=== PATIENT | female | born 1945 | race Caucasian/White ===

== ENCOUNTER 2016-09-12 16:03 | Outpatient (CLI) | payer MEDICARE, OTHER | END 2016-09-12 16:04 | disposition home or self-care (01) | LOC: LAB.F 16:03 | PROVIDERS: ATTEND Internal Medicine | DX: K74.60 Unspecified cirrhosis of liver (principal) | CPT/HCPCS: 36415; 82105 ==

== ENCOUNTER 2016-10-16 13:53 | Outpatient (CLI) | payer MEDICARE, OTHER ==
[2016-10-16 18:41] LABS: HCT - HEMATOCRIT 38.5 % (37.0-47.0); HGB - HEMOGLOBIN 12.9 g/dL (12.0-16.0); MEAN CORPUSCULAR HEMOGLOBIN 30.8 pg (27.0-31.0); MEAN CORPUSCULAR HGB CONC 33.4 g/dL (32.0-36.0); MEAN CORPUSCULAR VOLUME 92.2 fL (81.0-99.0); MEAN PLATELET VOLUME 9.9 fL (7.9-10.8); RED BLOOD COUNT 4.18 10^6/uL (4.20-5.40); RED CELL DISTRIBUTION WIDTH 12.4 % (12.0-15.0)
[2016-10-16 18:46] LABS: INR 1.1 (0.8-1.2); PT - PROTHROMBIN TIME 12.2 secs (9.9-12.6)
[2016-10-16 18:56] LABS: ALBUMIN/GLOBULIN RATIO 1.2 (1.0-2.2); BILIRUBIN,TOTAL 0.7 mg/dL (0.2-1.0); CREATININE 0.6 mg/dL (0.4-1.0); POTASSIUM 3.9 mmol/L (3.5-5.0); TOTAL PROTEIN 7.5 g/dL (6.7-8.2)
[2016-10-16 19:00] LABS: WHITE BLOOD COUNT 1.9 x10^3/uL (4.8-10.8)
== END 2016-10-16 13:54 | disposition home or self-care (01) ==
LOC: LAB.F 13:53
PROVIDERS: ATTEND Internal Medicine
DX: K74.60 Unspecified cirrhosis of liver (principal)
CPT/HCPCS: 36415; 80053; 85610

== ENCOUNTER 2017-03-26 12:45 | Outpatient (CLI) | payer MEDICARE, OTHER ==
--- NOTE | 2017-03-31 14:01 | Mammography Report ---
DATE OF SERVICE: 03/26/2017 DIGITAL SCREENING MAMMOGRAM: 03/26/2017 CLINICAL INDICATION: A 71-year-old with family history of breast cancer for screening. COMPARISON: 12/2015, 06/2014, 02/2013, 06/2011, 12/2009. TECHNIQUE: Routine CC and MLO projections were obtained of the breasts. FINDINGS: Scattered fibroglandular tissue is present within the breasts. There are no dominant mass es, suspicious microcalcifications, or secondary signs of malignancy. In comparison to the previous stud ies, there are no significant changes. ASSESSMENT: NO MAMMOGRAPHIC EVIDENCE OF MALIGNANCY. NO SIGNIFICANT INTERVAL CHANGES. RECOMMENDATION: Screening mammography is recommended annually. BIRADS category 1 - Negative. STANDARD QUALIFYING STATEMENTS 1. This examination was reviewed with the aid of Computed-Aided Detection (CAD). 2. A negative or benign imaging report should not delay biopsy if clinically suspicious findings are present. Consider surgical consultation if warranted. More than 5% of cancers are not identified by imaging. 3. Dense breasts may obscure an underlying neoplasm. TD: 03/27/2017 22:35
== END 2017-03-26 12:46 | disposition home or self-care (01) ==
LOC: DI 12:45
PROVIDERS: ATTEND Physician Assistant
DX: Z12.31 Encounter for screening mammogram for malignant neoplasm of breast (principal); Z80.3 Family history of malignant neoplasm of breast
CPT/HCPCS: 77067

== ENCOUNTER 2017-04-29 13:02 | Outpatient (CLI) | payer MEDICARE, OTHER ==
[2017-04-29 18:42] LABS: ALBUMIN/GLOBULIN RATIO 1.1 (1.0-2.2); BILIRUBIN,TOTAL 0.4 mg/dL (0.2-1.0); CALCIUM 8.9 mg/dL (8.5-10.3); CREATININE 0.5 mg/dL (0.4-1.0); TOTAL PROTEIN 7.5 g/dL (6.7-8.2)
[2017-05-01 21:16] LABS: COPPER 85 mcg/dL (70-175)
[2017-05-01 23:21] LABS: ALPHA 1 GLOBULIN 0.2 g/dL (0.2-0.3); ALPHA 2 GLOBULIN 0.7 g/dL (0.5-0.9); BETA 1 GLOBULIN 0.4 g/dL (0.4-0.6); BETA 2 GLOBULIN 0.4 g/dL (0.2-0.5); GAMMA GLOBULIN 1.3 g/dL (0.8-1.7)
[2017-05-03 17:51] LABS: ALPHA-TOCOPHEROL 15.7 mg/L (5.7-19.9); BETA-GAMMA-TOCOPHEROL 1.1 mg/L (< 4.3)
[2017-05-04 16:31] LABS: ENDOMYSIAL ANTIBODY SCR IGA NEGATIVE (NEGATIVE); GLIADIN (DEAMIDATED) AB IGA 18 U (<20); GLIADIN (DEAMIDATED) AB IGG 6 U (<20); IMMUNOGLOBULIN A 606 mg/dL (81-463); TISSUE TRANSGLUTAMINASE IGA <1 U/mL; TISSUE TRANSGLUTAMINASE IGG 2 U/mL
== END 2017-04-29 13:03 | disposition home or self-care (01) ==
LOC: LAB.F 13:02
PROVIDERS: ATTEND Psychiatry & Neurology Neurology
DX: G62.9 Polyneuropathy, unspecified (principal); E03.9 Hypothyroidism, unspecified; R77.8 Other specified abnormalities of plasma proteins; Z13.9 Encounter for screening, unspecified
CPT/HCPCS: 36415; 80053; 81599; 82525; 82784; 83516; 84155; 84165; 84443; 84446; 86256; 86334

== ENCOUNTER 2017-05-01 15:20 | Outpatient (CLI) | payer MEDICARE, OTHER ==
[2017-05-01 17:50] LABS: BASOPHILS % (AUTO) 0.3 %; EOSINOPHILS % (AUTO) 1.3 %; HGB - HEMOGLOBIN 12.3 g/dL (12.0-16.0); LYMPHOCYTES % (AUTO) 30.5 %; MEAN CORPUSCULAR HEMOGLOBIN 31.1 pg (27.0-31.0); MEAN CORPUSCULAR HGB CONC 33.8 g/dL (32.0-36.0); MEAN CORPUSCULAR VOLUME 91.8 fL (81.0-99.0); MEAN PLATELET VOLUME 10.4 fL (7.9-10.8); MONOCYTES % (AUTO) 8.4 %; NEUTROPHILS % (AUTO) 59.5 %; PLT - PLATELET COUNT 90 10^3/uL (130-450); RED BLOOD COUNT 3.95 10^6/uL (4.20-5.40); WHITE BLOOD COUNT 2.2 x10^3/uL (4.8-10.8)
[2017-05-01 17:52] LABS: ABNORMAL LYMPHS % (MANUAL) 0 %
[2017-05-01 18:13] LABS: BAND NEUTROPHILS % (MANUAL) 3 %; DIFFERENTIAL COMMENT MANUAL DIFFERENTIAL; LYMPHOCYTES # (MANUAL) 0.5 10^3/uL (1.5-3.5); LYMPHOCYTES % (MANUAL) 24 %; MONOCYTES # (MANUAL) 0.2 10^3/uL (0.0-1.0); NEUTROPHILS # (MANUAL) 1.4 10^3/uL (1.5-6.6); NEUTROPHILS % (MANUAL) 61 %; PLATELET ESTIMATE, MANUAL DECREASED (<130,000) (NORMAL); PLATELET MORPHOLOGY NORMAL APPEARANCE (NORMAL); RBC MORPHOLOGY (MULTIPLE) NORMAL APPEARANCE (NORMAL)
== END 2017-05-01 15:21 | disposition home or self-care (01) ==
LOC: LAB.F 15:20
PROVIDERS: ATTEND Physician Assistant
DX: E03.9 Hypothyroidism, unspecified (principal); Z13.9 Encounter for screening, unspecified
CPT/HCPCS: 85025

== ENCOUNTER 2018-01-11 13:51 | Outpatient (CLI) | payer MEDICARE, OTHER ==
--- NOTE | 2018-01-11 16:45 | XRAY Report ---
Reason: RT LEG PAIN Procedure Date: 01/11/2018 Accession Number: [id number] / [id number] Procedure: XR - Knee 3 View RT CPT Code: FULL RESULT: EXAM: RIGHT KNEE RADIOGRAPHY EXAM DATE: 01/11/2018 02:02 PM HISTORY: Injury and pain COMPARISON: None TECHNIQUE: AP, lateral and Merchant, 3 views including weightbearing FINDINGS: There is some mild cortical and trabecular irregularity at the tibial metaphysis. This could be a nondisplaced fracture. Follow-up with CT is recommended to better assess. Osteopenia is noted. There is lateral tibiofemoral compartment narrowing with subchondral sclerosis and small osteophyte formation consistent with Kellgren Luke grade 3 osteoarthritis. Positive for moderate joint effusion. Some cortical irregularity noted at the proximal fibula could be a fracture, old or new. IMPRESSION: Osteopenia with mild cortical and trabecular irregularity of the fibular head and tibial metaphysis. Consider CT or MRI to better assess for fracture. Findings are superimposed on Kellgren Luke grade 3 osteoarthritis mostly affecting the lateral compartment. RADIA
--- NOTE | 2018-01-11 16:50 | XRAY Report ---
Reason: RT LEG PAIN Procedure Date: 01/11/2018 Accession Number: [id number] / [id number] Procedure: XR - Tib/Fib RT CPT Code: FULL RESULT: EXAM: RIGHT TIBIA AND FIBULA RADIOGRAPHY EXAM DATE: 01/11/2018 02:03 PM HISTORY: Injury and pain COMPARISON: NONE TECHNIQUE: 2 views FINDINGS: Proximal fibular and tibial trabecular and cortical irregularity noted. See knee dictation of the same day for additional information. There is osteopenia. Mid and distal portions of the tibia and fibula show no significant abnormality. Ankle articulation is grossly intact. IMPRESSION: Mild cortical and trabecular irregularity of the proximal tibia and fibula. See knee dictation for additional information. Otherwise essentially unremarkable. RADIA
--- NOTE | 2018-01-11 16:52 | XRAY Report ---
Reason: RT LEG PAIN Procedure Date: 01/11/2018 Accession Number: [id number] / [id number] Procedure: XR - Ankle 3 View RT CPT Code: FULL RESULT: EXAM: RIGHT ANKLE RADIOGRAPHY EXAM DATE: 01/11/2018 02:02 PM HISTORY: Injury and pain COMPARISON: NONE TECHNIQUE: AP, lateral and oblique, 3 views FINDINGS: There is osteopenia. No apparent fracture or abnormality. Intact ankle mortise and normal overall alignment. No joint effusion. Mild lateral soft tissue swelling noted. There is also a super navicular accessory ossicle and an os peroneum. IMPRESSION: Osteopenia. No acute bony abnormality. RADIA
--- NOTE | 2018-01-11 17:03 | XRAY Report ---
Reason: RT LEG PAIN Procedure Date: 01/11/2018 Accession Number: [id number] / [id number] Procedure: XR - Foot 3 View RT CPT Code: FULL RESULT: EXAM: RIGHT FOOT RADIOGRAPHY EXAM DATE: 01/11/2018 02:02 PM HISTORY: Injury and pain COMPARISON: None. TECHNIQUE: AP, lateral and oblique, 3 views FINDINGS: There is osteopenia. No evidence of acute fracture deformity. Overall normal articular alignment. Mild forefoot soft tissue swelling might be present. There is an os peroneum as well as a supraclavicular accessory ossicle. IMPRESSION: Osteopenia. Mild forefoot soft tissue swelling. No apparent fracture or dislocation. RADIA
== END 2018-01-11 13:52 | disposition home or self-care (01) ==
LOC: DI 13:51
PROVIDERS: ATTEND Nurse Practitioner Family
DX: M85.861 Other specified disorders of bone density and structure, right lower leg (principal); M17.11 Unilateral primary osteoarthritis, right knee; R93.7 Abnormal findings on diagnostic imaging of other parts of musculoskeletal system; M85.871 Other specified disorders of bone density and structure, right ankle and foot

== ENCOUNTER 2018-02-05 15:28 | Outpatient (CLI) | payer MEDICARE, OTHER ==
--- NOTE | 2018-02-06 01:59 | XRAY Report ---
Reason: PELVIC/PERINEAL PAIN, TRAUMA WITH FALL Procedure Date: 02/05/2018 Accession Number: [id number] / [id number] Procedure: XR - Hip w/Pelvis 1V RT CPT Code: FULL RESULT: EXAM: RIGHT HIP AND PELVIS RADIOGRAPHY EXAM DATE: 02/05/2018 04:20 PM. HISTORY: PELVIC/PERINEAL PAIN, TRAUMA WITH FALL. COMPARISONS: KNEE 3 VIEW RT 01/11/2018 2:02 PM XR HIP UNILAT MIN 2 VIEW 12/08/2008 9:17 AM. TECHNIQUE: 1 view of the pelvis and 1 view of the hip. FINDINGS: Bones: Negative for a fracture of the right hip. There are new findings of left hip hemiarthroplasty. Joints: Sacroiliac joints and pubic symphysis appear in satisfactory alignment. Soft Tissues: Unremarkable. IMPRESSION: Negative for fracture and subluxation of the right hip. RADIA
== END 2018-02-05 15:29 | disposition home or self-care (01) ==
LOC: DI 15:28
PROVIDERS: ATTEND Physician Assistant
DX: M25.551 Pain in right hip (principal); Z96.642 Presence of left artificial hip joint

== ENCOUNTER 2020-07-27 12:47 | Outpatient (CLI) | payer MEDICARE, OTHER | END 2020-07-27 12:48 | disposition home or self-care (01) | LOC: COV 12:47 | PROVIDERS: ATTEND Internal Medicine | DX: Z01.812 Encounter for preprocedural laboratory examination (principal); I85.00 Esophageal varices without bleeding; Z20.822 Contact with and (suspected) exposure to COVID-19 ==

== ENCOUNTER 2021-07-09 16:19 | Outpatient (CLI) | payer MEDICARE, OTHER ==
[2021-07-09 19:51] LABS: BASOPHILS % (AUTO) 0.9 %; EOSINOPHILS % (AUTO) 2.3 %; HCT - HEMATOCRIT 35.2 % (37.0-47.0); HGB - HEMOGLOBIN 11.8 g/dL (12.0-16.0); LYMPHOCYTES % (AUTO) 31.6 %; MEAN CORPUSCULAR HEMOGLOBIN 31.1 pg (27.0-31.0); MEAN CORPUSCULAR HGB CONC 33.5 g/dL (32.0-36.0); MEAN CORPUSCULAR VOLUME 92.9 fL (81.0-99.0); MEAN PLATELET VOLUME 12.5 fL (7.9-10.8); MONOCYTES % (AUTO) 7.4 %; NEUTROPHILS % (AUTO) 57.8 %; PLT - PLATELET COUNT 119 10^3/uL (130-450); RED BLOOD COUNT 3.79 10^6/uL (4.20-5.40); RED CELL DISTRIBUTION WIDTH 11.9 % (12.0-15.0); WHITE BLOOD COUNT 2.2 x10^3/uL (4.8-10.8)
[2021-07-09 19:54] LABS: ABNORMAL LYMPHS % (MANUAL) 0 %
[2021-07-09 20:03] LABS: ALBUMIN 3.8 g/dL (3.2-5.5); ALBUMIN/GLOBULIN RATIO 1.3 (1.0-2.2); BILIRUBIN,TOTAL 0.6 mg/dL (0.2-1.0); CALCIUM 8.9 mg/dL (8.5-10.3); CREATININE 0.5 mg/dL (0.4-1.0); POTASSIUM 3.7 mmol/L (3.5-5.0); TOTAL PROTEIN 6.8 g/dL (6.7-8.2)
[2021-07-09 20:22] LABS: THYROID STIMULATING HORMONE 4.73 uIU/mL (0.34-5.60)
[2021-07-09 20:26] LABS: BAND NEUTROPHILS % (MANUAL) 1 %; BASOPHILS % (MANUAL) 2 %; DIFFERENTIAL COMMENT MANUAL DIFFERENTIAL; EOSINOPHILS # (MANUAL) 0.1 10^3/uL (0-0.7); LYMPHOCYTES # (MANUAL) 0.6 10^3/uL (1.5-3.5); LYMPHOCYTES % (MANUAL) 23 %; MONOCYTES # (MANUAL) 0.2 10^3/uL (0.0-1.0); NEUTROPHILS # (MANUAL) 1.4 10^3/uL (1.5-6.6); PLATELET ESTIMATE, MANUAL DECREASED (<130,000) (NORMAL); PLATELET MORPHOLOGY NORMAL APPEARANCE (NORMAL); RBC MORPHOLOGY (MULTIPLE) NORMAL APPEARANCE (NORMAL); REACTIVE LYMPHS % (MANUAL) 2 %; WBC MORPHOLOGY (MULTIPLE) NORMAL APPEARANCE (NORMAL)
== END 2021-07-09 16:20 | disposition home or self-care (01) ==
LOC: LAB.S 16:19
PROVIDERS: ATTEND Nurse Practitioner Family
DX: M81.0 Age-related osteoporosis without current pathological fracture (principal); E03.9 Hypothyroidism, unspecified
CPT/HCPCS: 36415; 80053; 82306; 84443; 85025

== ENCOUNTER 2021-07-25 08:00 | Outpatient (CLI) | payer MEDICARE, OTHER ==
[2021-07-25 21:09] LABS: THYROID STIMULATING HORMONE 2.16 uIU/mL (0.34-5.60)
== END 2021-07-25 08:01 | disposition home or self-care (01) ==
LOC: LAB.S 08:00
PROVIDERS: ATTEND Nurse Practitioner Family
DX: E03.9 Hypothyroidism, unspecified (principal)
CPT/HCPCS: 36415; 84443

== ENCOUNTER 2022-08-06 21:10 | Outpatient (CLI) | payer MEDICARE, OTHER | END 2022-08-06 23:59 | disposition critical access hospital (66) | LOC: EMS 21:10 | DX: R42 Dizziness and giddiness (principal); R11.0 Nausea; R00.1 Bradycardia, unspecified; R03.0 Elevated blood-pressure reading, without diagnosis of hypertension | CPT/HCPCS: A0425; A0427 ==

== ENCOUNTER 2022-08-06 22:30 | Emergency (ER) | payer MEDICARE, OTHER ==
[2022-08-06] MEDS ORDERED: SODIUM CHLORIDE 0.9% 1,000 ML IV STA (23:03)
[2022-08-06] MEDS ORDERED: METOCLOPRAMIDE 10 MG/2 ML VIAL IVP STA (23:03)
--- NOTE | 2022-08-06 23:08 | ED Physician Documentation ---
History of Present Illness - Stated complaint Stated Complaint: DIZZY/NAUSEA - Chief complaint Chief Complaint: Abd Pain - Additonal information Additional information: Patient 76-year-old female presenting to the emergency department with chief complaint nausea vomiting and lightheadedness. Accompanied by who is present at bedside. Reports this evening at 1730 hrs. became acutely nauseous and lightheaded. Denies any vertiginous sensation or syncope associated with the event. Reports that she was sitting outside in the hot sun earlier this afternoon. Was recently seen and treated for trigger finger of the right hand. Reports had not taken any of her Roxicodone prior to the onset of her symptoms but did take a 5 mg Roxicodone at approximately 9 this evening which worsened her symptoms. 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 - Past Surgical History Past Surgical History: Yes Ortho: Other - Present Medications Home Medications: Ambulatory Orders Medication Instructions Recorded Confirmed Cholecalciferol (Vitamin D3) 5,000 unit PO ONCE 09/21/13 04/21/18 [Vitamin D] Diazepam [Valium] 1 - 2 mg PO TID 09/21/13 04/21/18 Levothyroxine [Synthroid] 37.5 mcg PO QDAC 09/21/13 04/21/18 Liothyronine Sodium 2.5 mcg PO DAILY 09/21/13 04/21/18 [place]-3 Fatty Acids [Fish Oil] 500 mg PO DAILY 09/13/14 04/21/18 Acetaminophen with Codeine 1 each PO DAILY PRN 12/10/16 04/21/18 [Acetaminophen-Cod #3 Tablet] Aspirin [Aspirin EC] 81 mg PO DAILY 12/10/16 04/21/18 Psyllium Husk [Fiber] 5 gm PO DAILY 12/10/16 04/21/18 Saccharomyces Boulardii [Florastor] 250 mg PO BID 12/10/16 04/21/18 Cyanocobalamin (Vitamin B-12) 1 cap PO DAILY 12/30/17 04/21/18 [Vitamin B-12] Ibuprofen 200 mg PO Q6HR PRN 12/30/17 04/21/18 Milk Thistle/Nac/Dandel/Turmer 2 tab PO DAILY 12/30/17 04/21/18 [Liver Complex Tablet] Ondansetron Odt [Zofran] 4 mg TL Q6H PRN #10 tablet 08/07/22 - Allergies Allergies/Adverse Reactions: Allergies Allergy/AdvReac Type Severity Reaction Status Date / Time Sulfa (Sulfonamide Allergy Mild Rash Verified 08/06/22 23:00 Antibiotics) - Social History Does the pt smoke?: No Smoking Status: Never smoker Does the pt drink ETOH?: No Does the pt have substance abuse?: No - Immunizations Immunizations are current?: Yes - POLST Patient has POLST: No Results - Vitals Vitals: Vital Signs - 24 hr 08/06/22 08/07/22 08/07/22 22:34 00:39 02:00 Temperature 36.4 C L Heart Rate 54 L 65 64 Respiratory 16 18 16 Rate Blood Pressure 192/71 H 160/71 H 158/73 H O2 Saturation 100 100 99 Oxygen O2 Source Room air - Labs Labs: Laboratory Tests 08/06/22 08/06/22 08/06/22 23:09 23:09 23:09 WBC 3.1 L RBC 3.76 L Hgb 11.8 L Hct 34.7 L MCV 92.3 MCH 31.4 H MCHC 34.0 RDW 11.6 L Plt Count 93 L MPV 11.4 H Neut # (Auto) 2.5 Lymph # (Auto) 0.4 L [place] # (Auto) 0.2 Eos # (Auto) 0.0 Baso # (Auto) 0.0 Absolute Nucleated RBC 0.00 Nucleated RBC % 0.0 Sodium 134 L Potassium 3.5 Chloride 100 L Carbon Dioxide 25 Anion Gap 9.0 BUN 17 Creatinine 0.6 Estimated GFR (MDRD) 97 Glucose 139 H Lactic Acid 0.8 Calcium 8.5 Total Bilirubin 0.8 AST 22 ALT 14 Alkaline Phosphatase 47 Total Protein 7.1 Albumin 3.9 Globulin 3.2 Albumin/Globulin Ratio 1.2 Lipase 35 Urine Color Urine Clarity Urine pH Ur Specific [place] Urine Protein Urine Glucose (UA) Urine Ketones Urine Occult Blood Urine Nitrite Urine Bilirubin Urine Urobilinogen Ur Leukocyte Esterase Urine RBC Urine WBC Ur Squamous Epith Cells Amorphous Sediment Urine Bacteria Urine Mucus Ur Microscopic Review Urine Culture Comments 08/06/22 23:18 WBC RBC Hgb Hct MCV MCH MCHC RDW Plt Count MPV Neut # (Auto) Lymph # (Auto) [place] # (Auto) Eos # (Auto) Baso # (Auto) Absolute Nucleated RBC Nucleated RBC % Sodium Potassium Chloride Carbon Dioxide Anion Gap BUN Creatinine Estimated GFR (MDRD) Glucose Lactic Acid Calcium Total Bilirubin AST ALT Alkaline Phosphatase Total Protein Albumin Globulin Albumin/Globulin Ratio Lipase Urine Color YELLOW Urine Clarity SL. CLOUDY Urine pH 7.5 Ur Specific [place] 1.020 Urine Protein NEGATIVE Urine Glucose (UA) NEGATIVE Urine Ketones NEGATIVE Urine Occult Blood NEGATIVE Urine Nitrite NEGATIVE Urine Bilirubin NEGATIVE Urine Urobilinogen 0.2 (NORMAL) Ur Leukocyte Esterase TRACE H Urine RBC 0-5 Urine WBC 0-3 Ur Squamous Epith Cells RARE Squamous Amorphous Sediment Few Urine Bacteria Few Urine Mucus Few Strands Ur Microscopic Review INDICATED Urine Culture Comments INDICATED PD Medical Decision Making - ED course Complexity details: reviewed old records, reviewed results, re-evaluated patient, considered differential, d/w patient ED course: Patient 76-year-old female presenting to the emergency department with chief complaint of nausea vomiting. 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 Patient afebrile, hemodynamically stable on arrival to the emergency department. Had received Zofran prior to arrival. Continued to endorse for nausea but no active vomiting in the department. Given 10 mg Reglan on arrival with IV hydration. Comprehensive labs do demonstrate a pancytopenia however this appears improved from baseline. No significant electrolyte abnormality, renal insufficiency, or hepatic dysfunction noted. Given the patient has limited sensation below the level of the umbilicus I did order for CT abdomen pelvis which did not demonstrate any acute intra-abdominal pathology. Patient monitored in the emergency department for several hours, found to be resting comfortably. Abdominal exam remained benign on repeat. She reported feeling well enough to tolerate fluids. She was able to tolerate p.o. trial while in the emergency department and stated that she felt well enough to go home. She was provided with ondansetron both as a take-home pack as well as a prescription for same. I encouraged careful follow-up with primary care. Otherwise clear return precautions given. Departure - Departure Disposition: 01 , Self Care Clinical Impression: Nausea and vomiting Qualifiers: Vomiting type: unspecified Qualified Code(s): R11.2 - Nausea with vomiting, unspecified Instructions: ED Nausea Vomiting Prescriptions: Ondansetron Odt [Zofran] 4 mg TL Q6H PRN #10 tablet PRN Reason: Nausea / Vomiting Comments: Thank you for allowing us to care for you today at [facility]. Today in the emergency department you were evaluated for any possible life- threatening medical emergency. Overall of the testing in the emergency department including your blood work, urine studies and the CT scan of your abdomen and pelvis were all very reassuring. I am glad that you are feeling better. I will be writing your prescription for some ondansetron to take at home. Please make a follow-up appoint with your primary care doctor. If it anytime you have recurrent or worsening symptoms please return to the emergency department.
[2022-08-06] MEDS ORDERED: iohexoL-300 100 ML VIAL ONE (23:14)
[2022-08-06 23:16] LABS: BASOPHILS % (AUTO) 0.3 %; EOSINOPHILS % (AUTO) 0.6 %; HCT - HEMATOCRIT 34.7 % (37.0-47.0); HGB - HEMOGLOBIN 11.8 g/dL (12.0-16.0); LYMPHOCYTES # (AUTO) 0.4 10^3/uL (1.5-3.5); LYMPHOCYTES % (AUTO) 14.1 %; MEAN CORPUSCULAR HEMOGLOBIN 31.4 pg (27.0-31.0); MEAN CORPUSCULAR VOLUME 92.3 fL (81.0-99.0); MEAN PLATELET VOLUME 11.4 fL (7.9-10.8); MONOCYTES # (AUTO) 0.2 10^3/uL (0.0-1.0); MONOCYTES % (AUTO) 5.8 %; NEUTROPHILS # (AUTO) 2.5 10^3/uL (1.5-6.6); NEUTROPHILS % (AUTO) 78.9 %; PLT - PLATELET COUNT 93 10^3/uL (130-450); RED BLOOD COUNT 3.76 10^6/uL (4.20-5.40); RED CELL DISTRIBUTION WIDTH 11.6 % (12.0-15.0); WHITE BLOOD COUNT 3.1 x10^3/uL (4.8-10.8)
[2022-08-06 23:28] LABS: ALBUMIN 3.9 g/dL (3.2-5.5); ALBUMIN/GLOBULIN RATIO 1.2 (1.0-2.2); BILIRUBIN,TOTAL 0.8 mg/dL (0.2-1.0); CALCIUM 8.5 mg/dL (8.5-10.3); CREATININE 0.6 mg/dL (0.4-1.0); POTASSIUM 3.5 mmol/L (3.5-5.0); TOTAL PROTEIN 7.1 g/dL (6.7-8.2)
[2022-08-06 23:37] LABS: BILIRUBIN,URINE NEGATIVE (NEGATIVE); GLUCOSE, URINE (UA) NEGATIVE (NEGATIVE); KETONES,URINE (UA) NEGATIVE (NEGATIVE); LEUKOCYTE ESTERASE, URINE TRACE (NEGATIVE); NITRITE,URINE NEGATIVE (NEGATIVE); OCCULT BLOOD,URINE NEGATIVE (NEGATIVE); PH,URINE 7.5 PH (5.0-7.5); PROTEIN,URINE NEGATIVE (NEGATIVE); UROBILINOGEN,URINE 0.2 (NORMAL) E.U./dL (NORMAL)
[2022-08-06 23:41] LABS: CLARITY,URINE SL. CLOUDY (CLEAR)
[2022-08-06 23:42] LABS: AMORPHOUS SEDIMENT,UR Few /LPF; BACTERIA,URINE Few /HPF (None Seen); MUCUS,URINE Few Strands; RBC,URINE 0-5 /HPF (0-5); SQUAMOUS EPITHELIAL CELL,UR RARE Squamous (<= Few); WBC,URINE 0-3 /HPF (0-5)
--- NOTE | 2022-08-07 01:23 | CT Report ---
PROCEDURE: ABDOMEN/PELVIS W INDICATIONS: Rule out SBO CONTRAST: 100mL Omni 300 TECHNIQUE: After the administration of intravenous contrast, 5 mm thick sections acquired from the diaphragms to the symphysis. 5 mm thick coronal and sagittal reformats were acquired. For radiation dose reducti on, the following was used: automated exposure control, adjustment of mA and/or kV according to val ent size. COMPARISON: None. FINDINGS: Image quality: There is metallic streak artifact secondary to patient's left hip prosthesis. Lung bases:There is dependent atelectasis and scarring in the lung bases. Heart: Heart is normal in size. ABDOMEN: Liver: No mass lesion. Gallbladder: Within normal limits without calcified gallstones. Biliary ducts: No biliary ductal dilatation. Pancreas: Unremarkable. Spleen: Normal in size. There is a nonspecific oval hypodense lesion in the spleen measuring up to 1 .1 cm. Adrenal Glands: No adrenal nodules. Kidneys and Ureters: No hydronephrosis. Stomach and Bowel: Stomach, small bowel loops, and colon are normal in caliber and wall thickness. N o pericecal inflammatory changes to suggest appendicitis. There is moderate stool distention througho ut the ascending, transverse, and descending colon suggestive of constipation. Peritoneum: No abnormal intraperitoneal fluid. No free air. Ventral Wall: No hernia. Abdominal Nodes: No retroperitoneal or mesenteric adenopathy by size criteria. Vessels: Aorta and inferior vena cava are normal in size. 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 PELVIS: Pelvic Organs: Unremarkable. Bladder: Unremarkable. Pelvic Nodes: No enlarged lymph nodes. Miscellaneous: No inguinal hernias. Bones: Visualized osseous structures demonstrate no suspicious lesions. IMPRESSION: 1. No evidence of bowel obstruction. 2. Moderate stool distention in the colon suggestive of constipation. 3. Nonspecific oval hypodense lesion in the spleen statistically likely represents a nonaggressive pr ocess. Reviewed by: Riky Mas MD on 08/07/2022 1:21 AM PDT Approved by: Riky Mas MD on 08/07/2022 1:21 AM PDT Station ID: [id number]
[2022-08-07] MEDS ORDERED: ONDANSETRON 4 MG/2 ML VIAL IVP STA (01:46)
[2022-08-07] MEDS ORDERED: iohexoL-300 100 ML VIAL IVP ONE (02:26)
[2022-08-07] MEDS ORDERED: ONDANSETRON ODT 4 MG Prepack 2 TL PRN (02:29)
[2022-08-07 02:56] VITALS: BP 148/70
== END 2022-08-07 02:55 | disposition home or self-care (01) ==
LOC: EDUNIT# → ED 22:30
DX: R11.2 Nausea with vomiting, unspecified (principal)
CPT/HCPCS: 36415; 74177; 80053; 81001; 83605; 83690; 85025; 87086; 96361; 96374; 96375; 99284; J2765; Q9967; 81003

== ENCOUNTER 2023-07-28 08:00 | Outpatient (CLI) | payer MEDICARE, OTHER ==
--- NOTE | 2023-07-28 19:09 | XRAY Report ---
PROCEDURE: Ribs w/PA Chest 3+V LT INDICATIONS: LEFT SIDED RIB PAIN TECHNIQUE: 2 views of the ribs were acquired, along with a single view chest. COMPARISON: None. FINDINGS: Surgical changes and devices: None. Bones and chest wall: A marker is placed upon the area of pain. At this site, no fractures are seen. No fractures or dislocations are seen elsewhere. No suspicious bony lesions. Age-appropriate degen erative changes are seen. Mild dextroconvex scoliotic curvature is seen. The overlying soft tissues appear unremarkable. Lungs and pleura: No pleural effusions or pneumothorax. Lungs appear clear, yet hyperexpanded. Mediastinum: The aorta is prominent and tortuous. The cardiac contours are within normal limits. IMPRESSION: No displaced rib fracture or pneumothorax. If there is strong clinical concern for a post traumatic abnormality that is not seen on this plain f ilm study, then please consider a dedicated chest CT with IV contrast for further evaluation. Reviewed by: Tiago Hayes MD on 07/28/2023 6:08 PM MATTHEW Approved by: Tiago Hayes MD on 07/28/2023 6:08 PM MATTHEW Station ID: [id number]
== END 2023-07-28 23:59 | disposition home or self-care (01) ==
LOC: DI.S 08:00
PROVIDERS: ATTEND Physician Assistant Medical
DX: R07.81 Pleurodynia (principal)

== ENCOUNTER 2023-12-22 15:32 | Emergency (ER) | payer MEDICARE, OTHER ==
[2023-12-22 16:07] VITALS: BP 160/70; O2SAT 97
--- NOTE | 2023-12-22 16:26 | ED Physician Documentation ---
History of Present Illness - Stated complaint Stated Complaint: L LEG PX - Chief complaint Chief Complaint: Ext Problem - History obtained from History obtained from: Patient - History of Present Illness Pain level max: 4 Pain level now: 3 - Additonal information Additional information: 78-year-old female presents to the emergency department left leg pain after a fall last week. She states that she was walking, tripped and fell. Had pain to the left calf the next day. She states she went to physical therapy and they were concerned about a "blood clot". Therefore sent her here for an ultrasound to rule out DVT. Review of Systems Constitutional: denies: Fever Cardiac: denies: Chest pain / pressure, Palpitations Respiratory: denies: Dyspnea, Cough, Wheezing GI: denies: Abdominal Pain PD PAST MEDICAL HISTORY - Past Medical History Past Medical History: Yes Cardiovascular: Hypertension Endocrine/Autoimmune: HyPOthyroidism - Past Surgical History Past Surgical History: Yes Ortho: Hip replacement, Carpal Tunnel surgery - Present Medications Home Medications: Ambulatory Orders Medication Instructions Recorded Confirmed Cholecalciferol (Vitamin D3) 5,000 unit PO ONCE 09/21/13 04/21/18 [Vitamin D] Diazepam [Valium] 1 - 2 mg PO TID 09/21/13 04/21/18 Levothyroxine [Synthroid] 37.5 mcg PO QDAC 09/21/13 04/21/18 Liothyronine Sodium 2.5 mcg PO DAILY 09/21/13 04/21/18 [place]-3 Fatty Acids [Fish Oil] 500 mg PO DAILY 09/13/14 04/21/18 Acetaminophen with Codeine 1 each PO DAILY PRN 12/10/16 04/21/18 [Acetaminophen-Cod #3 Tablet] Aspirin [Aspirin EC] 81 mg PO DAILY 12/10/16 04/21/18 Psyllium Husk [Fiber] 5 gm PO DAILY 12/10/16 04/21/18 Saccharomyces Boulardii [Florastor] 250 mg PO BID 12/10/16 04/21/18 Cyanocobalamin (Vitamin B-12) 1 cap PO DAILY 12/30/17 04/21/18 [Vitamin B-12] Ibuprofen 200 mg PO Q6HR PRN 12/30/17 04/21/18 Milk Thistle/Nac/Dandel/[place] 2 tab PO DAILY 10/03/18 01/23/19 [Liver Complex Tablet] Ondansetron Odt [Zofran] 4 mg TL Q6H PRN #10 tablet 08/07/22 - Allergies Allergies/Adverse Reactions: Allergies Allergy/AdvReac Type Severity Reaction Status Date / Time Sulfa (Sulfonamide Allergy Mild Rash Verified 12/22/23 15:48 Antibiotics) - Social History Does the pt smoke?: No Smoking Status: Never smoker Does the pt drink ETOH?: No Does the pt have substance abuse?: No - Immunizations Immunizations are current?: Yes - POLST Patient has POLST: No PD ED PE NORMAL - Vitals Vital signs reviewed: Yes - General General: Alert and oriented X 3, No acute distress - HEENT HEENT: Moist mucous membranes - Neck Neck: Supple, no meningeal sign - Derm Derm: Warm and dry - Extremities Extremities: Other (Left lower extremity - No significant edema. No calf tenderness. No swelling. No cord. Neurovascular intact.) - Neuro Neuro: Alert and oriented X 3 Results - Vitals Vitals: Vital Signs - 24 hr 12/22/23 15:48 Temperature 36.5 C Heart Rate 63 Respiratory 16 Rate Blood Pressure 160/70 H O2 Saturation 97 Oxygen O2 Source Room air - Rads (name of study) Duplex ultrasound left lower extremity Relevant Findings:: Final report received, See rad report PD Medical Decision Making - ED course Complexity details: reviewed results, re-evaluated patient, considered differential, d/w patient ED course: Patient with what appears to be a calf strain status post fall. She was sent here for rule out DVT, therefore an ultrasound was performed, this does not show DVT. We will continue supportive care and have her follow-up with her doctor. No significant hematoma. Patient declines pain medication here or for home. Patient counseled regarding signs and symptoms for which I believe and urgent re-evaluation would be necessary. Patient with good understanding of and agreement to plan and is comfortable going home at this time This document was made in part using voice recognition software. While efforts are made to proofread this document, sound alike and grammatical errors may occur. Departure - Departure Disposition: 01 Home, Self Care Clinical Impression: Strain of left calf muscle Condition: Good Instructions: ED Strain Muscle Ext Follow-Up: Your,doctor in 1 week [Other] Comments: As we discussed your ultrasound is negative for DVT. You appear to have a calf strain from your fall. Please follow-up with your doctor for further care as needed. You can compress the area with an Vu bandage, apply ice and heat as well to help with swelling and pain. Return if you worsen Forms: PCP List Discharge Date/Time: 12/22/23 18:32
--- NOTE | 2023-12-22 19:45 | Ultrasound Report ---
PROCEDURE: Duplex Ext Veins Left INDICATIONS: fall, pain, pcp sent to r/o dvt TECHNIQUE: Real-time imaging, as well as color and pulse Doppler interrogation, were performed of the lower extr emity deep veins from the inguinal ligament to the popliteal fossa. Attempted visualization of the ca lf veins was performed. COMPARISON: None. FINDINGS: The deep veins are normally compressible, and free of intraluminal thrombus. Color and pu lse Doppler demonstrate normal phasic intraluminal flow. There is normal augmentation response to di stal compression maneuver. Anterior knee fluid measures 3.1 x 2.1 cm. IMPRESSION: No deep venous thrombosis of the visualized lower extremity. Reviewed by: Danielito Guadalupe MD on 12/22/2023 7:44 PM PDT Approved by: Danielito Guadalupe MD on 12/22/2023 7:44 PM PDT Station ID: [id number]
== END 2023-12-22 18:32 | disposition home or self-care (01) ==
LOC: ED 15:32
DX: S86.812A Strain of other muscle(s) and tendon(s) at lower leg level, left leg, initial encounter (principal); W01.0XXA Fall on same level from slipping, tripping and stumbling without subsequent striking against object, initial encounter; Y93.01 Activity, walking, marching and hiking
CPT/HCPCS: 99283; 99284

== ENCOUNTER 2025-02-06 10:44 | Inpatient (IN) ==
--- NOTE | 2025-02-06 11:43 | ED Physician Documentation ---
History of Present Illness Stated complaint Stated Complaint: SEPSIS Chief complaint Chief Complaint: General History obtained from History obtained from: Patient History of Present Illness Pain level max: 0 Pain level now: 0 Additonal information Additional information: Patient is a 79-year-old female who presents to the emergency department stating that she was recalled for positive blood cultures. She has had fever, UTI. She states that 4 out of 4 blood cultures were positive for E. coli. She is still feeling weak and tired. No fevers today. No vomiting. No abdominal pain. She has a history of paraplegia. She is insensate from the umbilicus down. Review of Systems Constitutional Reports: Chills Respiratory Denies: Cough Gastrointestinal Denies: Vomiting Meds/Allgy Home Medications Ambulatory Orders Medication Instructions Recorded Confirmed psyllium husk 0.52 gram capsule 5 g PO DAILY 12/10/16 02/06/25 (Fiber (psyllium husk)) amlodipine 5 mg tablet 5 mg PO DAILY 02/05/2502/06 cefuroxime axetil 500 mg tablet 500 mg PO BID 7 days # 14 tabs 02/05/25 02/06/25 levothyroxine 50 mcg tablet 50 mcg PO DAILY 02/05/25 1 04/08/24 potassium chloride 10 mEq 10 meq PO DAILY 5 days #5 ca ps 02/05/25 02/06/25 capsule,extended release acetaminophen 300 mg-codeine 30 mg 1 tab PO DAILY PRN pain 02/06/25 02/06/25 tablet cholecalciferol (vitamin D3) 10 1,000 unit PO DAILY 02/06/25 mcg/0.25 mL oral drops cyanocobalamin (vitamin B-12) 500 500 mcg PO DAILY 01/2102/06/25 mcg tablet (Vitamin B-12) diazepam 5 mg tablet 2.5 mg PO QID PRN muscle spa sm 02/06/25 02/06/25 milk thistle 150 mg capsule 150 mg PO DAILY 02/06/25 1 04/08/24 saliva stimulant comb. no.3 1 applic mucous membrane Q ID PRN 02/06/25 02/06/25 (Biotene Moisturizing Mouth dry mouth mucosal spray) Allergies Allergies Allergy/AdvReac Type Severity Reaction Status Date / Time Sulfa (Sulfonamide Allergy Mild Rash Verified 02/06/25 11:09 Antibiotics) PFSH Active Problems All Active Problems (Updated 02/07/25 @ 01:57 by Amina Cralwey, INGRID) Urine incontinence (Acute) Cirrhosis (Acute) Luz Maria thyroiditis (Acute) Leukopenia (Acute) E coli bacteremia (Acute) UTI (urinary tract infection) (Acute) Bacteremia (Acute) Hypokalemia (Acute) Weakness (Acute) UTI (urinary tract infection) (Acute) Generalized muscle ache (Acute) Age-related osteoporosis without current pathological fracture (Acute) Medical History Medical History (Updated 02/07/25 @ 01:57 by Amina Crawley, RN) Chronic neutropenia Chronic ITP (idiopathic thrombocytopenia) Osteoporosis Polyneuropathy Scoliosis Raynaud's disease Thoracic myelopathy Spinal paraparesis Bilateral foot-drop Esophageal varices BPPV (benign paroxysmal positional vertigo) Hepatitis C virus infection cured after antiviral drug therapy Osteoarthritis Muscle spasticity Chronic joint pain 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 (Date/Year): 1969 Second hand tobacco smoke exposure: Yes (young) Do you dip or chew tobacco?: No Do you vape?: No Level: Assisted Do you feel safe in your home environment?: Yes History of physical, verbal, emotional, or financial abuse?: No POLST Patient has POLST: No Exam Exam Vital Signs: Vital Signs x48h Temp Pulse Resp BP Pulse Ox 02/06/25 10:56 36.6 C 65 20 129/59 L 100 Constitutional normal general appearance and no apparent distress HENMT oropharynx normal moist mucous membranes Eyes PERRL Neck/C-Spine visual inspection normal Respiratory breath sounds equal bilaterally, normal respiratory effort and clear to auscultation bilaterally Cardiovascular normal heart rate noted and regular rhythm noted Gastrointestinal abdomen normal to inspection, abdomen soft to palpation, nontender to palpation and nondistended Genitourinary no CVA tenderness Extremities no edema Neurology speech normal Psychiatry mental status grossly normal and oriented x3 Skin skin color normal Results Vitals Vitals: Oxygen O2 Source Room air Labs Labs: Microbiology 02/06/25 11:30 Blood Culture - Preliminary Blood NO GROWTH AFTER 1 DAY 02/06/25 11:30 Blood Culture - Preliminary Blood NO GROWTH AFTER 1 DAY Laboratory Tests 02/06/25 11:30 WBC 3.0 L RBC 3.48 L Hgb 11.0 L Hct 32.6 L MCV 93.7 MCH 31.6 H MCHC 33.7 RDW 11.4 L Plt Count 95 L MPV 12.1 H Neut # (Auto) 2.0 Lymph # (Auto) 0.6 L [place] # (Auto) 0.3 Eos # (Auto) 0.0 Baso # (Auto) 0.0 Absolute Nucleated RBC 0.00 Nucleated RBC % 0.0 Sodium 133 L Potassium 3.7 Chloride 100 L Carbon Dioxide 27 Anion Gap 6.0 BUN 10 Creatinine 0.5 L Estimated GFR (MDRD) 119 Glucose 102 Lactic Acid 0.8 Calcium 8.9 Total Bilirubin 0.6 AST 16 ALT 11 Alkaline Phosphatase 49 Total Protein 7.4 Albumin 3.8 Globulin 3.6 Albumin/Globulin Ratio 1.1 Lipase 18 PD Medical Decision Making ED course Complexity details: reviewed results, re-evaluated patient, considered differential and d/w patient ED course: Patient is well-appearing, nontoxic. Afebrile. Has 4 our of 4 positive blood cultures for E. coli. Given Rocephin. Will admit for bacteremia. Discussed the case with the hospitalist who accepts. CT abdomen pelvis was ordered as well to exclude any urinary obstruction or ureteral stones. This will be followed up by the hospitalist. This document was made in part using voice recognition software. While efforts are made to proofread this document, sound alike and grammatical errors may occur. Discharge Plan Discharge Patient Disposition: [facility] DC/Xfer Condition: Stable Clinical Impression: Bacteremia UTI (urinary tract infection) Qualifiers: Urinary tract infection type: acute cystitis Hematuria presence: without hematuria Qualified Code(s): N30.00 - Acute cystitis without hematuria Interventions: ED Admission Assessment Last Done: 02/06/25 12:55 Vitals documented within 30 minutes of discharge?: Yes
[2025-02-06 11:59] LABS: HCT - HEMATOCRIT 32.6 % (37.0-47.0); HGB - HEMOGLOBIN 11.0 g/dL (12.0-16.0); MEAN PLATELET VOLUME 12.1 fL (7.9-10.8); NRBC ABSOLUTE COUNT (AUTO) 0.00 x10^3/uL; NUCLEATED RED BLOOD CELLS AUTO 0.0 /100WBC; PLT - PLATELET COUNT 95 10^3/uL (130-450); RED CELL DISTRIBUTION WIDTH 11.4 % (12.0-15.0)
[2025-02-06 12:12] LABS: ALT ALANINE AMINOTRANSFERASE 11.0 IU/L (10-60); AST ASPARTATE AMINOTRANSFERASE 16.0 IU/L (10-42); BUN - BLOOD UREA NITROGEN 10.0 mg/dL (6-20); CARBON DIOXIDE - CO2 27.0 mmol/L (21-32); CREATININE 0.5 mg/dL (0.6-1.3); GFR - MDRD 119.0 (>89)
--- NOTE | 2025-02-06 12:16 | HISTORY & PHYSICAL EXAMINATION ---
Chief Complaint Chief Complaint Chief Complaint: Weakness, fatigue, chills History of Present Illness Admitted From Admitted From:: Home History Obtained From Records Reviewed: EMR History obtained from: Patient Exam Limitations: None History of Present Illness HPI Comment/Other: Patient is a 79-year-old female with a history of a spinal cord injury in 1959 with resultant paraplegia, Luz Maria thyroiditis, connective tissue disorder who presented for a few nonspecific complaints. Around , she started noticing some alternating fevers and chills. It resolved on Thursday. However, the entire weekend, she was extremely fatigued. She denies any dysuria, but sometimes does not have feeling down thereshe describes it as patchy. She denies any other urinary symptoms including urinary incontinence, frequency, urgency. She is able to void on her own. She denies any chest pain, shortness of breath, cough. She has irritable bowel syndrome, and has been constipated recently. She usually alternates between constipation and diarrhea. In the ER, she was vitally stableafebrile, saturating 100% on room air, respiratory rate was between 16-18, heart rate was 77, and she was normotensive. Lab work was significant for a leukopenia at 3.0. This is higher than her usual baseline based on chart review. Her hemoglobin is 11.0. Her CMP was largely unremarkable. Urine cultures and blood cultures are all growing E. coli. She was started on Rocephin. Past medical history includes spinal cord injury in 1959, and has been using wheelchair for over 10 years. 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 She underwent treatment for hepatitis C, and is cured now. She also is osteoporosis, Luz Maria's, irritable bowel syndrome, scoliosis, chronic thrombocytopenia and neutropenia, connective tissue disorder, fatigue, Raynaud's, tendinitis. Medications include levothyroxine, oxybutynin, diazepam, Tylenol for 3 days, amlodipine. She has allergies to sulfa drugs, which caused facial flushing and rash. Surgical history includes hip surgery, as well as a spinal surgery as a child. She denies any alcohol, tobacco, recreational drug use. She lives with her , Jamie. 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 She now usually moves around with a wheelchair. CODE STATUS was discussed and patient would like to be a DO NOT RESUSCITATE. POLST was left at bedside they would like to discuss further before filling out the remainder of the form. Meds/Allgy Home Medications Ambulatory Orders Medication Instructions Recorded Confirmed cholecalciferol (vitamin D3) 50 5,000 unit PO ONCE 02/05/25 mcg (2,000 unit) capsule (Vitamin D3) omega-3 fatty acids 300 mg capsule 500 mg PO DAILY 02/05/25 (Fish Oil) psyllium husk 0.52 gram capsule 5 g PO DAILY 12/10/16 02/05/25 (Fiber (psyllium husk)) amlodipine 5 mg tablet 5 mg PO DAILY 02/05/2502/05 cefuroxime axetil 500 mg tablet 500 mg PO BID 7 days # 14 tabs 02/05/25 levothyroxine 50 mcg tablet 50 mcg PO DAILY 02/05/25 1 04/07/24 potassium chloride 10 mEq 10 meq PO DAILY 5 days #5 ca ps 02/05/25 capsule,extended release Allergies Allergies Allergy/AdvReac Type Severity Reaction Status Date / Time Sulfa (Sulfonamide Allergy Mild Rash Verified 02/06/25 11:09 Antibiotics) PFSH Active Problems All Active Problems (Updated 02/06/25 @ 14:13 by Karen Gaitan MD) Urine incontinence (Acute) Cirrhosis (Acute) Luz Maria thyroiditis (Acute) Leukopenia (Acute) E coli bacteremia (Acute) UTI (urinary tract infection) (Acute) Bacteremia (Acute) Hypokalemia (Acute) Weakness (Acute) UTI (urinary tract infection) (Acute) Generalized muscle ache (Acute) Age-related osteoporosis without current pathological fracture (Acute) Medical History Medical History Paraplegia History of spinal cord injury History of hypertension History of hypothyroidism Social History Social History Do you vape?: No Do you feel safe in your home environment?: Yes History of physical, verbal, emotional, or financial abuse?: No POLST Patient has POLST: No POLST on file?: No POLST CPR Status: Do Not Attempt Resuscitation (DNAR) / Allow Natural Level of Medical Intervention: Full Treatment Review of Systems Constitutional Reports: Fatigue, Fever, Chills, Malaise, Weakness and Poor appetite Eyes Denies: Pain, Irritation, Blurry vision, Vision loss or Diplopia Ears, nose, mouth, and throat Denies: Ear pain, Hearing loss, Tinnitus, Nose bleeds or Nasal discharge Cardiovascular Denies: Irregular heart rate, chest pain, palpitations, edema, Syncope or shortness of breath with exertion Respiratory Denies: Shortness of breath, Cough or Sputum production Gastrointestinal Reports: Poor appetite, Diarrhea and Constipation; Denies: Abdominal pain, Abdominal distention, Nausea, Vomiting or Heartburn Genitourinary Denies: Painful urination, Urinary frequency or Urinary urgency Musculoskeletal Reports: Extremity pain and Extremity swelling; Denies: Back pain or Joint pain Integumentary/Breast Reports: Redness; Denies: Rash or Itching Neurological Reports: General weakness; Denies: Headache, Weakness in extremities or Numbness in extremities Psychiatric Denies: Depression, Anxiety or Mood swings Endocrine Reports: Fatigue; Denies: Excessive urination or Excessive thirst Hematologic/Lymphatic Denies: Anemia, Easy bruising or Easy bleeding Allergic/Immunologic Denies: Hives Prior Level of Functionality: Ambulates with the help of a wheelchair. Lives with , who helps with ADLs. Exam Exam Vital Signs: Vital Signs x48h Temp Pulse Resp BP Pulse Ox 02/06/25 12:55 97.5 F L 77 16 145/55 H 100 02/06/25 10:56 97.9 F 65 20 129/59 L 100 Constitutional normal general appearance, no apparent distress, abnormal body habitus (thin) and no limitations [facility] normocephalic, head/scalp atraumatic and hearing grossly normal bilaterally Eyes PERRL, EOMs intact bilaterally and conjunctivae normal Neck/C-Spine visual inspection normal, trachea midline and cervical spine nontender Chest inspection of chest normal Respiratory breath sounds equal bilaterally, normal respiratory effort, clear to auscultation bilaterally, no wheezes, no rales and no retractions Cardiovascular normal heart rate noted, regular rhythm noted, no gallop, no rub and no murmur Gastrointestinal abdomen normal to inspection, abdomen soft to palpation, nontender to palpation and normoactive bowel sounds Genitourinary no CVA tenderness and bladder normal to palpation Extremities normal to inspection, normal to palpation, no tenderness and abnormal ROM noted Neurology speech normal and coordination normal Mild decrease in sensation bilateral lower extremities up until thighs. 2 out of 5 strength to flexion and extension in right lower extremity, 3 out of 5 in left lower extremitychronic per the patient. Psychiatry mental status grossly normal, oriented x3, thought process normal, cooperative and affect normal Skin skin color normal, no rash, no lesions and no wounds Conclusion/Plan Problem List (1) E coli bacteremia: (2) UTI (urinary tract infection): Plan: The following is the a plan for the above 2 diagnoses: Patient presents with nonspecific complaints of fatigue, chills, alternating fevers. Chronic leukopenia noted. Mild tachypnea noted. UA positive for infection. Urine cultures, blood cultures x 2 positive for E. coli. This is the patient's first UTI in many years. Abdomen/Pelvis CT ordered to rule out infected stone. Remains pending. Continue IV Rocephin daily. Qualifiers: Hematuria presence: without hematuria Urinary tract infection type: a cute cystitis Qualified Code(s): N30.00 - Acute cystitis without hematuria (3) Leukopenia: Plan: We do have oncology notes from 2019 when patient was diagnosed with chronic neutropenia and thrombocytopenia. At that time, she was receiving treatment for hepatitis C, and required G-CSF support. Since then, she has been chronically low. Appears about the same at this time. Continue to trend daily. Qualifiers: Neutropenia type: unspecified Leukopenia type: neutropenia Qualified Code(s): D70.9 - Neutropenia, unspecified (4) History of spinal cord injury: Plan: Patient has spinal cord mass removed in 1959. She has been a paraplegic since. Uses Tylenol, diazepam, Tylenol 3's for severe pain as needed. Has not required these in the last few days. (5) Luz Maria thyroiditis: Plan: Continue home levothyroxine. (6) Cirrhosis: Plan: Patient reports a history of cirrhosis, portal hypertension due to hepatitis C which she has been treated for adequately. LFTs within normal limits at this time. Patient does not take any lactulose at home, and is not confused at this time. Continue to follow-up outpatient with seafood farmer, for which she receives yearly ultrasounds and blood work. Qualifiers: Hepatic cirrhosis type: unspecified hepatic cirrhosis Ascites presence: unspecified Qualified Code(s): K74.60 - Unspecified cirrhosis of liver (7) Urine incontinence: Plan: Patient takes oxybutynin as needed. Continue while inpatient if needed. Qualifiers: Urinary Incontinence type: unspecified incontinence Qualified Code(s): R32 - Unspecified urinary incontinence Lab Results Lab results reviewed: Yes 02/06/25 11:30 02/06/25 11:30 Diagnostic Imaging Results Diagnostic Imaging Results: positive Final report reviewed Core Measures Anticipated LOS I expect patient to be DC'd or transferred within 96 hours.: Yes Issues Hospital Issues and Management Plan: None anticipated. DVT/VTE - Prophylaxis VTE/DVT Device ordered at admit?: No Not Ordered - Medical Reason: Not indicated VTE/DVT Prophylaxis med ordered at admit?: Yes Stroke - Rehab Assessment Rehab services assessment to be ordered?: No Not Ordered - Medical Reason: Not indicated AMI - Statin at Admit Aspirin Prescribed on Admit: No Not Ordered - Medical Reason: Not indicated
[2025-02-06] MEDS: SODIUM CHLORIDE 0.9% 1,000 ML IV STA (12:42)
[2025-02-06] MEDS ORDERED: ONDANSETRON ODT 4 MG TABLET TL PRN (13:10)
[2025-02-06] MEDS ORDERED: SODIUM CHLORIDE FLUSH 0.9% 10 ML SYRINGE IVP PRN (13:10)
[2025-02-06] MEDS ORDERED: ONDANSETRON 4 MG/2 ML VIAL IVP PRN (13:10)
[2025-02-06 13:16] LABS: GLUCOSE, URINE (UA) NEGATIVE (NEGATIVE); KETONES,URINE (UA) NEGATIVE (NEGATIVE); OCCULT BLOOD,URINE MODERATE (NEGATIVE)
[2025-02-06] MEDS: cefTRIAXone 1 GM VIAL IVP STA (13:38)
[2025-02-06 13:42] LABS: SQUAMOUS EPITHELIAL CELL,UR RARE Squamous (<= Few)
[2025-02-06] MEDS: LACTATED RINGERS 1,000 ML IV SCH (13:58)
[2025-02-06] MEDS ORDERED: ACETAMINOPHEN/CODEINE 300 MG/30 MG TABLET PO PRN (14:31)
--- NOTE | 2025-02-06 14:33 | CT Report ---
PROCEDURE: CT Abdomen/Pelvis W INDICATIONS: UTI, bacteremia, sepsis CONTRAST: 100ml omni 300 TECHNIQUE: After the administration of intravenous contrast, a CT scan of the abdomen and pelvis was performed. Images were recorded and evaluated at appropriate window settings. Reformats: coronal and sagittal. For radiation dose reduction, the following was used: automated exposure control, adjustment of mA and/or kV according to patient size. COMPARISON: 08/07/2022 FINDINGS: Image quality: Diagnostic. Lower chest: Mild cardiomegaly.. Liver: No solid mass. Gallbladder: No radiopaque stones or wall thickening. Biliary tree: No intrahepatic or extrahepatic dilation, accounting for age. Spleen: No splenomegaly. Pancreas: No pancreatic ductal dilation. Adrenals: No adrenal nodule. Kidneys and ureters: No hydronephrosis. No renal cystic lesion which requires follow up. No solid mass. Stomach, bowel and peritoneum: No gastric or small bowel dilation. No abnormal wall thickening. No pathologic free fluid. Lymph nodes: No central or retroperitoneal adenopathy. Vessels: No infrarenal aortic aneurysm. Patent portal vein. PELVIS Reproductive organs: Unremarkable. Bladder: No abnormal wall thickening. Pelvic lymph nodes: No pelvic adenopathy by size criteria. Bones: No aggressive osseous abnormality. Extensive metal artifact from left hip replacement. Thoracolumbar scoliotic curvature.. Other: No significant ventral or inguinal hernia. IMPRESSION: 1. No acute abdominal process noted. 2. Mild cardiomegaly. Reviewed by: Harjinder Jordan MD on 02/06/2025 2:30 PM PST Approved by: Harjinder Jordan MD on 02/06/2025 2:30 PM PST Station ID: [id number]
--- NOTE | 2025-02-06 14:55 | PHARMACY PROGRESS NOTE ---
Best Possible Medication History Admit Date and Time: 02/06/25 1213 Home Medications Medication Instructions Recorded Confirmed Type psyllium husk 0.52 gram capsule 5 g PO DAILY 12/10/16 02/06/25 History (Fiber (psyllium husk)) amlodipine 5 mg tablet 5 mg PO DAILY 02/05/2502/06 History cefuroxime axetil 500 mg tablet 500 mg PO BID 7 days # 14 tabs 02/05/25 02/06/25 Rx levothyroxine 50 mcg tablet 50 mcg PO DAILY 02/05/25 1 04/08/24 History potassium chloride 10 mEq 10 meq PO DAILY 5 days #5 ca ps 02/05/25 02/06/25 Rx capsule,extended release acetaminophen 300 mg-codeine 30 mg 1 tab PO DAILY PRN pain 02/06/25 02/06/25 History tablet cholecalciferol (vitamin D3) 10 1,000 unit PO DAILY 02/06/25 History mcg/0.25 mL oral drops cyanocobalamin (vitamin B-12) 500 500 mcg PO DAILY 01/2102/06/25 History mcg tablet (Vitamin B-12) diazepam 5 mg tablet 2.5 mg PO QID PRN muscle spa sm 02/06/25 02/06/25 History milk thistle 150 mg capsule 150 mg PO DAILY 02/06/25 1 04/08/24 History saliva stimulant comb. no.3 1 applic mucous membrane Q ID PRN 02/06/25 02/06/25 History (Biotene Moisturizing Mouth dry mouth mucosal spray) Processed by: Pharmacy Medications reviewed in ED?: No Medication History completed: Yes Patient Interview: Completed Secondary Source(s): Spouse/Significant other and Insurance records [facility] Statement: As the person ultimately responsible for medication therapy, providers are able to order a medication from an existing home medication list in [facility] via the "Reconcile Routine" prior to Confirmation of that medication by technical support assistant. Such practice is discouraged except when the physician, in their clinical judgment, deems that a medical need exists for a medication without regard to previous use.
[2025-02-06] MEDS: LOPERAMIDE 2 MG CAPSULE PO PRN (17:51)
[2025-02-06] MEDS: SODIUM CHLORIDE FLUSH 0.9% 10 ML SYRINGE IVP SCH (17:51)
[2025-02-07 04:47] LABS: HCT - HEMATOCRIT 30.1 % (37.0-47.0); HGB - HEMOGLOBIN 10.2 g/dL (12.0-16.0); MEAN PLATELET VOLUME 12.1 fL (7.9-10.8); PLT - PLATELET COUNT 89.0 10^3/uL (130-450); RED CELL DISTRIBUTION WIDTH 11.5 % (12.0-15.0)
[2025-02-07 05:04] LABS: BUN - BLOOD UREA NITROGEN 8.0 mg/dL (6-20); CARBON DIOXIDE - CO2 26.0 mmol/L (21-32); CREATININE 0.5 mg/dL (0.6-1.3); GFR - MDRD 119.0 (>89)
[2025-02-07] MEDS: LEVOTHYROXINE 25 MCG TABLET PO SCH (07:01)
[2025-02-07] MEDS: ENOXAPARIN 40 MG/0.4 ML SYRINGE SUBQ SCH (08:36)
[2025-02-07] MEDS: CHOLECALCIFEROL 25 MCG TABLET PO SCH (08:36)
[2025-02-07] MEDS: CYANOCOBALAMIN 500 MCG TABLET PO SCH (08:36)
--- NOTE | 2025-02-07 08:39 | PROVIDER PROGRESS NOTE ---
Subjective Prog Note Date Prog Note Date: 02/07/25 Prog Note Time: 08:38 Subjective Subjective: Vital signs remained stable overnight. Afebrile. WBC remains low. Pending sensitivities on both blood and urine cultures. Presumptively positive for E. coli. We discussed her initial presentation. She had been feeling unwell, and came in to the ED with concern for sepsis. Initially was worked up for a UTI and sent home with outpatient antibiotics. Then was recalled to the hospital after her blood cultures returned positive. She says after starting on IV antibiotics here yesterday, she feels 100% better. She has more energy. Denies any fevers or chills. She was having shaking chills prior to admission. Current Medications Current Medications Current Medications: Current Medications Generic Name Dose Route Start Last Admin Trade Name Freq PRN Reason Stop Dose Admin Acetaminophen 650 mg 02/06/25 13:10 Acetaminophen 325 Mg Tablet PO Q4HR PRN Pain 1 to 4, or Fever Amlodipine Besylate 5 mg 02/07/25 09:00 02/07/25 08:36 Amlodipine 5 Mg Tablet PO 5 mg DAILY VALENCIA Administration Ceftriaxone Sodium 2 gm 02/07/25 09:00 02/07/25 08:36 Ceftriaxone 2 Gm Vial IVP 2 gm DAILY VALENCIA Administration Cholecalciferol 25 mcg 02/07/25 09:00 02/07/25 08:36 Cholecalciferol 25 Mcg Tablet PO 25 mcg DAILY VALENCIA Administration Cyanocobalamin 1,000 mcg 02/07/25 09:00 02/07/25 08:36 Cyanocobalamin 500 Mcg Tablet PO 1,000 mcg DAILY VALENCIA Administration Diazepam 5 mg 02/06/25 15:44 02/06/25 22:19 Diazepam 5 Mg Tablet PO 5 mg BID PRN Administration Spasms Enoxaparin Sodium 40 mg 02/07/25 09:00 02/07/25 08:36 Enoxaparin 40 Mg/0.4 Ml Syringe SUBQ 40 mg DAILY VALENCIA Administration Lactated Ringer's 1,000 mls @ 75 mls/hr 02/06/25 13:10 02/07/25 04:41 Lr IV 75 mls/hr .[id number] VALENCIA Administration Levothyroxine Sodium 50 mcg 02/07/25 07:00 02/07/25 07:01 Levothyroxine 25 Mcg Tablet PO 50 mcg QDAC VALENCIA Administration Loperamide HCl 2 mg 02/06/25 17:19 02/06/25 17:51 Loperamide 2 Mg Capsule PO 2 mg QID PRN Administration Diarrhea Ondansetron HCl 4 mg 02/06/25 13:10 Ondansetron Odt 4 Mg Tablet TL Q6HR PRN Nausea / Vomiting Ondansetron HCl 4 mg 02/06/25 13:10 Ondansetron 4 Mg/2 Ml Vial IVP Q6HR PRN Nausea / Vomiting Sodium Chloride 10 ml 02/06/25 13:10 Sodium Chloride Flush 0.9% 10 Ml Syringe IVP PRN PRN NEEDED PER PROVIDER ORDERS Sodium Chloride 10 ml 02/06/25 17:00 02/07/25 08:37 Sodium Chloride Flush 0.9% 10 Ml Syringe IVP Not Given 0100,0900,1700 [facility] Objective Vital Signs/Intake & Output Reviewed Vital Signs: Yes Vital Signs: Vital Signs x48h Temp Pulse Resp BP Pulse Ox 02/07/25 04:44 37.0 C 59 L 20 130/57 L 97 Intake & Output: Intake & Output 02/04/25 02/05/25 02/06/25 02/07/25 23:59 23:59 23:59 23:59 Intake Total 1240 / 1240 1720 / 1720 Output Total 250 / 250 Balance 1240 / 1240 1470 / 1470 Weight (kg) 48 kg Objective Comments/Other: GEN: No acute distress HEENT: NC/AT, normal appearance of external ears and nose. Hearing baseline. Cardiac: Regular rate and rhythm, no murmurs. Generally euvolemic on exam. Pulm: Lungs CTA bilaterally, no cough, no wheezes. Normal effort on room air Abdomen: Soft, nontender, nondistended. No rebound or guarding Neuro: Face symmetric, CN II through XII intact grossly. Chronic and stable bilateral lower extremity weakness. Psych: Mood euthymic with congruent affect. Appropriate and cooperative. Lab Results 02/07/25 04:15 02/07/25 04:15 Other Labs: Lab Results x24hrs 02/07/25 02/06/25 02/06/25 Range/Units 04:15 12:42 11:30 WBC 2.5 L 3.0 L (4.8-10.8) x10^3/uL RBC 3.22 L 3.48 L (4.20-5.40) 10^6/uL Hgb 10.2 L 11.0 L (12.0-16.0) g/dL Hct 30.1 L 32.6 L (37.0-47.0) % MCV 93.5 93.7 (81.0-99.0) fL MCH 31.7 H 31.6 H (27.0-31.0) pg MCHC 33.9 33.7 (32.0-36.0) g/dL RDW 11.5 L 11.4 L (12.0-15.0) % Plt Count 89 L 95 L (130-450) 10^3/uL MPV 12.1 H 12.1 H (7.9-10.8) fL Neut # (Auto) 2.0 (1.5-6.6) 10^3/uL Lymph # (Auto) 0.6 L (1.5-3.5) 10^3/uL [place] # (Auto) 0.3 (0.0-1.0) 10^3/uL Eos # (Auto) 0.0 (0.0-0.7) 10^3/uL Baso # (Auto) 0.0 (0.0-0.1) 10^3/uL Absolute Nucleated RBC 0.00 x10^3/uL Nucleated RBC % 0.0 /100WBC Sodium 135 133 L (135-145) mmol/L Potassium 3.5 3.7 (3.5-4.5) mmol/L Chloride 103 100 L (101-111) mmol/L Carbon Dioxide 26 27 (21-32) mmol/L Anion Gap 6.0 6.0 (6-13) BUN 8 10 (6-20) mg/dL Creatinine 0.5 L 0.5 L (0.6-1.3) mg/dL Estimated GFR (MDRD) 119 119 (>89) Glucose 89 102 (74-104) mg/dL Lactic Acid 0.8 (0.5-2.2) mmol/L Calcium 8.1 L 8.9 (8.5-10.3) mg/dL Magnesium 1.8 (1.7-2.3) mg/dL Total Bilirubin 0.6 (0.2-1.0) mg/dL AST 16 (10-42) IU/L ALT 11 (10-60) IU/L Alkaline Phosphatase 49 (42-121) IU/L Total Protein 7.4 (6.4-8.9) g/dL Albumin 3.8 (3.2-5.5) g/dL Globulin 3.6 (2.1-4.2) g/dL Albumin/Globulin Ratio 1.1 (1.0-2.2) Lipase 18 (11-82) U/L Urine Color YELLOW Urine Clarity CLOUDY (CLEAR) Urine pH 6.5 (5.0-7.5) PH Ur Specific [place] 1.010 (1.002-1.030) Urine Protein NEGATIVE (NEGATIVE) mg/dL Urine Glucose (UA) NEGATIVE (NEGATIVE) mg/dL Urine Ketones NEGATIVE (NEGATIVE) mg/dL Urine Occult Blood MODERATE H (NEGATIVE) Urine Nitrite NEGATIVE (NEGATIVE) Urine Bilirubin NEGATIVE (NEGATIVE) Urine Urobilinogen 0.2 (NORMAL) (NORMAL) E.U./dL Ur Leukocyte Esterase MODERATE H (NEGATIVE) Urine RBC 0-5 (0-5) /HPF Urine WBC >25 H (0-5) /HPF Ur Squamous Epith Cells RARE Squamous (<= Few) Urine Bacteria Moderate H (None Seen) /HPF Ur Microscopic Review INDICATED Urine Culture Comments INDICATED Assessment/Plan Problem List (1) E coli bacteremia: (2) UTI (urinary tract infection): Impression: Improved Patient's been started on empirically on ceftriaxone here. Pending sensitivities from cultures drawn on the day prior to admission. E. coli is growing both in her urine as well as blood cultures. Little value for follow-up blood cultures and gram-negative bacteremia as long as sensitive to empiric treatment (Leyla 2017). No evidence of stone, or obstructive process. - Follow-up susceptibilities of urine and blood cultures - Continue ceftriaxone, tentatively for at least 4 doses - If continues to clinically stabilize, can transition to susceptible oral antibiotic to complete 7-day course - CBC a.m. Qualifiers: Hematuria presence: without hematuria Urinary tract infection type: a cute cystitis Qualified Code(s): N30.00 - Acute cystitis without hematuria (3) Leukopenia: Impression: Chronic and stable. The patient is not neutropenic. ANC 2000. Patient has a history of neutropenia and thrombocytopenia. - CBC with differential AM - Could consider follow-up with heme outpatient, but of little utility. 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 Stable deficits to bilateral lower extremities. Home meds include Tylenol, diazepam, and opiates for severe pain as needed. - Continue home pain meds (5) Luz Maria thyroiditis: Impression: Reportedly stable. TSH has not been measured in some time. - Continue SUPERVISOR POWDERED SUGAR levothyroxine 50 mcg daily - TSH with morning labs (6) Cirrhosis: Impression: MELD 3.0 11 (98.9% 90-day survival), Child-Prince class A The above are presumptive based on normal INR which has not been checked in the last 8 years. She does have thrombocytopenia suggestive of cirrhosis. 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 No hepatic encephalopathy. No significant ascites. She has normal creatinine. - Trend CMP, INR a.m. - Monitor for any evidence of hepatic encephalopathy - Maintain SBP on the differential - Continue outpatient follow-up with hepatology, HCC screening Qualifiers: Ascites presence: unspecified Hepatic cirrhosis type: unspecified hepatic cirrhosis Qualified Code(s): K74.60 - Unspecified cirrhosis of liver (7) Urine incontinence: Impression: Chronic and stable. Continuing SUPERVISOR POWDERED SUGAR oxybutynin. Qualifiers: Urinary Incontinence type: unspecified incontinence Qualified Code(s): R32 - Unspecified urinary incontinence (8) IBS (irritable bowel syndrome): Impression: Chronic and stable. Diarrheal subtype. Patient uses loperamide and fiber supplementation at home. - Continue loperamide 4 mg - Florastor I spent a total of 41 minutes in the care of this patient today. This time was spent reviewing labs, vital signs, imaging, interviewing and examining the patient, and discussing plan of care with them and their other care providers
[2025-02-07] MEDS: ACETAMINOPHEN 325 MG TABLET PO PRN (14:22)
[2025-02-07] MEDS: SACCHAROMYCES BOULARDII 250 MG CAPSULE PO SCH (16:45)
[2025-02-07] MEDS: LOPERAMIDE 2 MG CAPSULE PO PRN (20:31)
[2025-02-08 05:05] LABS: HCT - HEMATOCRIT 32.0 % (37.0-47.0); HGB - HEMOGLOBIN 10.3 g/dL (12.0-16.0); MEAN PLATELET VOLUME 12.4 fL (7.9-10.8); PLT - PLATELET COUNT 102 10^3/uL (130-450); RED CELL DISTRIBUTION WIDTH 11.8 % (12.0-15.0)
[2025-02-08 05:12] LABS: BASOPHILS # (MANUAL) 0.0 10^3/uL (0-0.1); INR 1.2 (0.8-1.2); MONOCYTES # (MANUAL) 0.0 10^3/uL (0.0-1.0); PT - PROTHROMBIN TIME 13.0 secs (9.9-12.6)
[2025-02-08 05:20] LABS: ALT ALANINE AMINOTRANSFERASE 9.0 IU/L (10-60); AST ASPARTATE AMINOTRANSFERASE 13.0 IU/L (10-42); BUN - BLOOD UREA NITROGEN 6.0 mg/dL (6-20); CARBON DIOXIDE - CO2 27.0 mmol/L (21-32); CREATININE 0.5 mg/dL (0.6-1.3); GFR - MDRD 119.0 (>89)
[2025-02-08 06:54] LABS: ABNORMAL LYMPHS % (MANUAL) 2 %; BAND NEUTROPHILS % (MANUAL) 2 %; BASOPHILS % (MANUAL) 1 %; EOSINOPHILS # (MANUAL) 0.1 10^3/uL (0-0.7); LYMPHOCYTES # (MANUAL) 0.9 10^3/uL (1.5-3.5); LYMPHOCYTES % (MANUAL) 37 %; NEUTROPHILS # (MANUAL) 1.2 10^3/uL (1.5-6.6); PLATELET ESTIMATE, MANUAL DECREASED (<130,000) (NORMAL); PLATELET MORPHOLOGY NORMAL APPEARANCE (NORMAL); RBC MORPHOLOGY (MULTIPLE) NORMAL APPEARANCE (NORMAL); WBC MORPHOLOGY (MULTIPLE) NORMAL APPEARANCE (NORMAL)
--- NOTE | 2025-02-08 08:14 | PROVIDER PROGRESS NOTE ---
Subjective Prog Note Date Prog Note Date: 02/08/25 Prog Note Time: 08:10 Subjective Subjective: Remains clinically stable. Afebrile. Normal saturations on room air. Normal vital signs otherwise. Normotensive. WBC continues to downtrend slightly to 2.3. ANC now 1.2 from 2. Platelets 102 and stable. K3.4 this morning and was replenished. Corrected calcium is normal. Total body protein is low. TSH measured this morning 13.0, free T4 0.99. She does not have michael symptoms of hypothyroidism. Specifically no weight gain, hypersomnolence, constipation. No cold intolerance. Suspect euthyroid sick syndrome. On interview today, patient continues to feel intervally better. Feeling better each day. Denies any fevers or chills. No other localizing symptoms. We extensive conversation at bedside today explaining her POLST form. See ACP note from today. Current Medications Current Medications Current Medications: Current Medications Generic Name Dose Route Start Last Admin Trade Name Freq PRN Reason Stop Dose Admin Acetaminophen 650 mg 02/06/25 13:10 02/07/25 14:22 Acetaminophen 325 Mg Tablet PO 650 mg Q4HR PRN Administration Pain 1 to 4, or Fever Amlodipine Besylate 5 mg 02/07/25 09:00 02/07/25 08:36 Amlodipine 5 Mg Tablet PO 5 mg DAILY VALENCIA Administration Ceftriaxone Sodium 2 gm 02/07/25 09:00 02/07/25 08:36 Ceftriaxone 2 Gm Vial IVP 2 gm DAILY VALENCIA Administration Cholecalciferol 25 mcg 02/07/25 09:00 02/07/25 08:36 Cholecalciferol 25 Mcg Tablet PO 25 mcg DAILY VALENCIA Administration Cyanocobalamin 1,000 mcg 02/07/25 09:00 02/07/25 08:36 Cyanocobalamin 500 Mcg Tablet PO 1,000 mcg DAILY VALENCIA Administration Diazepam 5 mg 02/06/25 15:44 02/08/25 00:15 Diazepam 5 Mg Tablet PO 5 mg BID PRN Administration Spasms Enoxaparin Sodium 40 mg 02/07/25 09:00 02/07/25 08:36 Enoxaparin 40 Mg/0.4 Ml Syringe SUBQ 40 mg DAILY VALENCIA Administration Lactated Ringer's 1,000 mls @ 75 mls/hr 02/06/25 13:10 02/08/25 05:48 Lr IV 75 mls/hr .[id number] VALENCIA Administration Levothyroxine Sodium 50 mcg 02/07/25 07:00 02/08/25 05:49 Levothyroxine 25 Mcg Tablet PO 50 mcg QDAC VALENCIA Administration Loperamide HCl 4 mg 02/07/25 16:24 02/07/25 20:31 Loperamide 2 Mg Capsule PO 4 mg QID PRN Administration Diarrhea Ondansetron HCl 4 mg 02/06/25 13:10 Ondansetron Odt 4 Mg Tablet TL Q6HR PRN Nausea / Vomiting Ondansetron HCl 4 mg 02/06/25 13:10 Ondansetron 4 Mg/2 Ml Vial IVP Q6HR PRN Nausea / Vomiting Saccharomyces Boulardii 250 mg 02/07/25 17:00 02/07/25 16:45 Saccharomyces Boulardii 250 Mg Capsule PO 250 mg BIDWM VALENCIA Administration Sodium Chloride 10 ml 02/06/25 13:10 Sodium Chloride Flush 0.9% 10 Ml Syringe IVP PRN PRN NEEDED PER PROVIDER ORDERS Sodium Chloride 10 ml 02/06/25 17:00 02/08/25 00:15 Sodium Chloride Flush 0.9% 10 Ml Syringe IVP 10 ml 0100,0900,1700 VALENCIA Administration Objective Vital Signs/Intake & Output Reviewed Vital Signs: Yes Vital Signs: Vital Signs x48h Temp Pulse Resp BP Pulse Ox 02/08/25 05:00 36.9 C 60 18 132/60 H 96 02/08/25 00:23 36.5 C 61 17 135/64 H 98 Intake & Output: Intake & Output 02/05/25 02/06/25 02/07/25 02/08/25 23:59 23:59 23:59 23:59 Intake Total 1240 / 1240 3105 / 3105 1200 / 1200 Output Total 1150 / 1150 1700 / 1700 Balance 1240 / 1240 1955 / 1955 -500 / -500 Weight (kg) 48 kg Objective Comments/Other: GEN: No acute distress HEENT: NC/AT, normal appearance of external ears and nose. Hearing baseline. Cardiac: Regular rate and rhythm, no murmurs. Generally euvolemic on exam. Pulm: Lungs CTA bilaterally, no cough, no wheezes. Normal effort on room air Abdomen: Soft, nontender, nondistended. No rebound or guarding Neuro: Face symmetric, CN II through XII intact grossly. Chronic and stable bilateral lower extremity weakness. Psych: Mood euthymic with congruent affect. Appropriate and cooperative. Reasonable insight Lab Results 02/08/25 04:05 02/08/25 04:05 Other Labs: Lab Results x24hrs 02/08/25 Range/Units 04:05 WBC 2.3 L (4.8-10.8) x10^3/uL RBC 3.37 L (4.20-5.40) 10^6/uL Hgb 10.3 L (12.0-16.0) g/dL Hct 32.0 L (37.0-47.0) % MCV 95.0 (81.0-99.0) fL MCH 30.6 (27.0-31.0) pg MCHC 32.2 (32.0-36.0) g/dL RDW 11.8 L (12.0-15.0) % Plt Count 102 L (130-450) 10^3/uL MPV 12.4 H (7.9-10.8) fL Neut # (Auto) Not Reportable Lymph # (Auto) Not Reportable [place] # (Auto) Not Reportable Eos # (Auto) Not Reportable Baso # (Auto) Not Reportable Absolute Nucleated RBC Not Reportable Total Counted 100 Band Neuts % (Manual) 2 (0 - 10) % Abnorm Lymph % (Manual) 2 % Nucleated RBC % Not Reportable Neutrophils # (Manual) 1.2 L (1.5-6.6) 10^3/uL Lymphocytes # (Manual) 0.9 L (1.5-3.5) 10^3/uL Monocytes # (Manual) 0.0 (0.0-1.0) 10^3/uL Eosinophils # (Manual) 0.1 (0-0.7) 10^3/uL Basophils # (Manual) 0.0 (0-0.1) 10^3/uL Differential Comment MANUAL DIFFERENTIAL WBC Morphology NORMAL APPEARANCE (NORMAL) Platelet Estimate DECREASED (<130,000) (NORMAL) Platelet Morphology NORMAL APPEARANCE (NORMAL) RBC Morph Micro Appear NORMAL APPEARANCE (NORMAL) PT 13.0 H (9.9-12.6) secs INR 1.2 (0.8-1.2) Sodium 139 (135-145) mmol/L Potassium 3.4 L (3.5-4.5) mmol/L Chloride 104 (101-111) mmol/L Carbon Dioxide 27 (21-32) mmol/L Anion Gap 8.0 (6-13) BUN 6 (6-20) mg/dL Creatinine 0.5 L (0.6-1.3) mg/dL Estimated GFR (MDRD) 119 (>89) Glucose 91 (74-104) mg/dL Calcium 8.2 L (8.5-10.3) mg/dL Total Bilirubin 0.3 (0.2-1.0) mg/dL AST 13 (10-42) IU/L ALT 9 L (10-60) IU/L Alkaline Phosphatase 42 (42-121) IU/L Total Protein 5.8 L (6.4-8.9) g/dL Albumin 3.0 L (3.2-5.5) g/dL Globulin 2.8 (2.1-4.2) g/dL Albumin/Globulin Ratio 1.1 (1.0-2.2) TSH 13.04 H (0.34-5.60) uIU/mL Free T4 Direct 0.99 (0.58-1.64) ng/dL Assessment/Plan Problem List (1) E coli bacteremia: (2) UTI (urinary tract infection): Impression: Continues to intervally improved. She is feeling better. More strengthening today. Says she is feeling more weak from her acute illness. Continues on empiric ceftriaxone therapy. Pending sensitivities from cultures drawn on the day prior to admission. E. coli is growing both in her urine as well as blood cultures. Little value for follow-up blood cultures and gram-negative bacteremia as long as sensitive to empiric treatment (Leyla 2017). No evidence of stone, or obstructive process. Blood cultures revealed pansensitive E. coli. - Continue ceftriaxone, tentatively for at least 4 doses - If continues to clinically stabilize, can transition to susceptible oral antibiotic to complete 7-day course, EOT 02/12 o Preference ciprofloxacin given patients sulfa allergy - CBC a.m. Qualifiers: Hematuria presence: without hematuria Urinary tract infection type: a cute cystitis Qualified Code(s): N30.00 - Acute cystitis without hematuria (3) Leukopenia: Impression: Slightly down trended today. Patient mildly neutropenic. ANC 1200. Patient has a history of neutropenia and thrombocytopenia. This started when she was diagnosed with HCV, she was previously treated, and is thought to be cured - CBC with differential AM - Could consider follow-up with heme outpatient. 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 Stable deficits to bilateral lower extremities. Home meds include Tylenol, diazepam, and opiates for severe pain as needed. - Continue home pain meds (5) Luz Maria thyroiditis: Impression: TSH was measured this hospitalization at 13. Normal T4. She does not have michael symptoms of hypothyroidism. Despite her elevated TSH, her T4 is low normal range. She specifically does not have a cold intolerance, weight gain. She has had some fatigue that is better explained by her bacteremia. She does not have constipation, she has diarrhea as below. Suspect this is euthyroid sick syndrome. - Continue ACADEMIC ADMINISTRATOR levothyroxine 50 mcg daily - TSH with Primary care in the next 6 to 8 weeks (6) Cirrhosis: Impression: Stable. INR was 1.2 and normal today as expected. MELD 3.0 11 (98.9% 90-day survival), Child-Prince class A INR normal this admission. She does have thrombocytopenia suggestive of cirrhosis. 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 No hepatic encephalopathy. No significant ascites. She has normal creatinine. - Trend CMP AM - Monitor for any evidence of hepatic encephalopathy - Maintain SBP on the differential - Continue outpatient follow-up with hepatology, HCC screening Qualifiers: Ascites presence: unspecified Hepatic cirrhosis type: unspecified hepatic cirrhosis Qualified Code(s): K74.60 - Unspecified cirrhosis of liver (7) Urine incontinence: Impression: Chronic and stable. Continuing ACADEMIC ADMINISTRATOR oxybutynin. Qualifiers: Urinary Incontinence type: unspecified incontinence Qualified Code(s): R32 - Unspecified urinary incontinence (8) IBS (irritable bowel syndrome): Impression: Chronic and stable. Diarrheal subtype. Patient uses loperamide and fiber supplementation at home. - Continue loperamide 4 mg - Florastor I spent a total of 41 minutes in the care of this patient today. This time was spent reviewing labs, vital signs, imaging, interviewing and examining the patient, and discussing plan of care with them and their other care providers
[2025-02-08] MEDS: POTASSIUM CHLORIDE 20 MEQ TABLET PO ONE (08:57)
--- NOTE | 2025-02-08 16:59 | PT Plan of Care ---
PT Plan of Care Physical Therapy Plan of Care: Diagnosis Diagnosis sepsis, bacteremia Referring Provider Khang Back Patient Status Inpatient Chief Complaint Chief Complaint weakness Onset of Chief Complaint [employer] Medical History (Updated 02/07/25 @ 01:57 by Amina Crawley, RN) Chronic neutropenia Chronic ITP (idiopathic thrombocytopenia) Osteoporosis Polyneuropathy Scoliosis Raynaud's disease Thoracic myelopathy Spinal paraparesis Bilateral foot-drop Esophageal varices BPPV (benign paroxysmal positional vertigo) Hepatitis C virus infection cured after antiviral drug therapy Osteoarthritis Muscle spasticity Chronic joint pain 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 Admitted with sepsis, found to have ecoli bacteremia. PMH included paraplegia d/t SCI in 1959. Pt is a wc user and Kana with transfers at baseline. Cleared for eval by hospitalist. Upon PT eval, pt reports some apprehension about weakness and ability to transfer, but willing to participate. Denies pain and vitals WNL. Transfers to EOB toward R side with CGA and assist for set up. Pt's assists with power scooter mobility and pt set up for L lateral scoot transfer. Completes transfer with CGA only. Pt presenting near baseline mobility however will benefit from continued PT d/t deconditioning from recent bedrest. Plan to progress upright tolerance and transfer training during acute stay. When medically clear, PT rec dc home with HHPT/OT/ bathaide and increased CG support as needed. Goals Improve bed mobility to: Modified Independent Improve supine to sit to: Modified Independent Improve pivot transfer ability Modified Independent to: Improve sit to supine to: Modified Independent Improve Sitting Balance to: Good PT Plan of Care Frequency 1-2x/day Duration Until discharge Discharge Recommendations Discharge Location Previous Living Situation Support/Services Needed Home Health P.T. Other has all rec DME Transport Needs at Discharge Personal vehicle
[2025-02-09 05:32] VITALS: TEMP 97.9
[2025-02-09 05:43] LABS: HCT - HEMATOCRIT 29.3 % (37.0-47.0); HGB - HEMOGLOBIN 9.9 g/dL (12.0-16.0); MEAN PLATELET VOLUME 12.1 fL (7.9-10.8); NRBC ABSOLUTE COUNT (AUTO) 0.00 x10^3/uL; NUCLEATED RED BLOOD CELLS AUTO 0.0 /100WBC; PLT - PLATELET COUNT 118 10^3/uL (130-450); RED CELL DISTRIBUTION WIDTH 11.6 % (12.0-15.0)
[2025-02-09 06:12] LABS: SLIDE REVIEW? Indicated
[2025-02-09 06:13] LABS: RBC MORPHOLOGY (MULTIPLE) NORMAL APPEARANCE (NORMAL)
[2025-02-09 06:14] LABS: PLATELET ESTIMATE, MANUAL DECREASED (<130,000) (NORMAL); PLATELET MORPHOLOGY NORMAL APPEARANCE (NORMAL); WBC MORPHOLOGY (MULTIPLE) NORMAL APPEARANCE (NORMAL)
--- NOTE | 2025-02-09 08:34 | Discharge Summary ---
"Discharge Summary Admit Date: 02/06/25 Discharge Date: 02/09/25 Discharging Provider: Khang Back Primary Care Provider: Giovanna Marcelo MD Code Status: Do Not Attempt Resuscitation Discharge Facility Name: Home DIAGNOSES Discharge Diagnoses with Status of Each Condition: ## E coli bacteremia, improved ## UTI (urinary tract infection), resolved Improved. Patient presented with symptoms of bacteremia including rigors and fatigue. She is found to have gram-negative bacteremia. E. coli growing in urine as well as blood. Pansensitive. She was treated with ceftriaxone for 4 doses, transition to ciprofloxacin at discharge. This was chosen in part because of her sulfa allergy. Will complete 7 days of therapy. She has been improving remarkably. She has leukopenia as below - Finish up course of antibiotics, 3 more days of ciprofloxacin 750 twice daily - Follow-up with PCP mostly for symptom follow-up but will get CBC due to leukopenia as below. - No need for surveillance cultures ## Leukopenia, chronic ANC downtrended during this hospitalization from 2000 down to 900. She is not favoring. She has chronic leukopenia dating back several years. No clear explanation for this. She says she has seen hematology before. - Recommend follow-up CBC once she is off of antimicrobials - Consider hematology follow-up if she remains neutropenic - Discussed neutropenic precautions including hygiene, avoiding sick contacts ## Luz Maria thyroiditis, stable TSH was measured this hospitalization at 13. Normal T4. She does not have michael symptoms of hypothyroidism. Despite her elevated TSH, her T4 is low normal range. She specifically does not have a cold intolerance, weight gain. She has had some fatigue that is better explained by her bacteremia. She does not have constipation, she has diarrhea as below. Suspect this is euthyroid sick syndrome. - Continue COREMAKER BENCH levothyroxine 50 mcg daily - TSH with Primary care in the next 6 to 8 weeks ## Goals of Care Patient endorse that she would like to be DNR during this hospitalization. We discussed a POLST at length. She was unclear if she would endorse a full treatment status versus a selective treatment status. She was leaning towards selective treatment at discharge. She wished to fill this out with her primary care doctor, she was given a POLST at discharge. I encouraged her to return signed POLST and her advance directives/POA paperwork so that we can have them on record. Her surrogate decision maker is her Jamie. - Patient to fill POLST with primary care doctor at next appointment ## History of spinal cord injury, chronic and stable Recall that she had a spinal cord mass removed in 1959. Has been paraplegic since. Stable deficits to bilateral lower extremities. Home meds include Tylenol, diazepam, and opiates for severe pain as needed. These were continued during this hospitalization. ## Cirrhosis, Stable and compensated MELD 3.0 11 (98.9% 90-day survival), Child-Prince class A INR normal this admission. She does have thrombocytopenia suggestive of cirrhosis. 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 No hepatic encephalopathy. No significant ascites. She has normal creatinine. - Continue outpatient follow-up with hepatology, HCC screening ## Urine incontinence, chronic and stable Continuing COREMAKER BENCH oxybutynin. ## IBS (irritable bowel syndrome), chronic and stable Diarrheal subtype. Patient uses loperamide and fiber supplementation at home. Uses probiotics. These were continued. - Discussed risks of diarrhea with antibiotics, return precautions discussed. HPI History of Present Illness: Patient is a 79-year-old female with a history of a spinal cord injury in 1959 with resultant paraplegia, Luz Maria thyroiditis, connective tissue disorder who presented for a few nonspecific complaints. Around , she started noticing some alternating fevers and chills. It resolved on Thursday. However, the entire weekend, she was extremely fatigued. She denies any dysuria, but sometimes does not have feeling down thereshe describes it as patchy. She denies any other urinary symptoms including urinary incontinence, frequency, urgency. She is able to void on her own. She denies any chest pain, shortness of breath, cough. She has irritable bowel syndrome, and has been constipated recently. She usually alternates between constipation and diarrhea. In the ER, she was vitally stableafebrile, saturating 100% on room air, respiratory rate was between 16-18, heart rate was 77, and she was normotensive. Lab work was significant for a leukopenia at 3.0. This is higher than her usual baseline based on chart review. Her hemoglobin is 11.0. Her CMP was largely unremarkable. Urine cultures and blood cultures are all growing E. coli. She was started on Rocephin. Past medical history includes spinal cord injury in 1959, and has been using wheelchair for over 10 years. 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 She underwent treatment for hepatitis C, and is cured now. She also is osteoporosis, Luz Maria's, irritable bowel syndrome, scoliosis, chronic thrombocytopenia and neutropenia, connective tissue disorder, fatigue, Raynaud's, tendinitis. Medications include levothyroxine, oxybutynin, diazepam, Tylenol for 3 days, amlodipine. She has allergies to sulfa drugs, which caused facial flushing and rash. Surgical history includes hip surgery, as well as a spinal surgery as a child. She denies any alcohol, tobacco, recreational drug use. She lives with her , Jamie. 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 She now usually moves around with a wheelchair. CODE STATUS was discussed and patient would like to be a DO NOT RESUSCITATE. POLST was left at bedside they would like to discuss further before filling out the remainder of the form. CONSULTS | PROCEDURES Consultations: None Procedures: CXR 02/05/2025 CTAP, 02/06/2025 HOSPITAL COURSE Hospital Course: Patient was admitted for outpatient labs done in the ED that revealed that she had gram-negative bacteremia. E. coli bacteremia that was pansensitive. She was started on treatment with ceftriaxone. She responded remarkably well. Her symptoms had resolved by hospital day 1. She felt well. By guidelines, she received several days of parenteral antibiotic before transitioning to enteral antibiotics at discharge. She will complete 7 days given robust response and uncomplicated infection. Her course was notable for leukopenia which is a chronic problem for her. She had a reducing ANC during this hospitalization from 1999 down to 900. This is likely due to treatment of her bacteremia. Unclear what her baseline neutrophil count is. She should consider follow-up with hematology if she continues to be neutropenic. With an ANC less than the thousand she is technically moderately neutropenic. Recommend repeat CBC with differential once she has cleared her infection and is off of antibiotics. She was also found here to have an elevated TSH but low normal T4. Her symptoms are not consistent with hypothyroidism. Suspect this is just euthyroid sick syndrome. She should have repeat TSH in the next 2 months. Patient was seen and evaluated on day of discharge. Return precautions were discussed at length. Patient is discharged in stable condition with her Jamie. She was unable to fill out a POLST during this hospitalization as she wished to discuss it with her primary care doctor. She did endorse a DNR status during this hospitalization. ALLERGIES Allergies Allergy/AdvReac Type Severity Reaction Status Date / Time Sulfa (Sulfonamide Allergy Mild Rash Verified 02/06/25 11:09 Antibiotics) MEDICATIONS Ambulatory Orders Medication Instructions Recorded Confirmed psyllium husk 0.52 gram capsule 5 g PO DAILY 12/10/16 02/06/25 (Fiber (psyllium husk)) amlodipine 5 mg tablet 5 mg PO DAILY 02/05/2502/06 levothyroxine 50 mcg tablet 50 mcg PO DAILY 02/05/25 1 04/08/24 potassium chloride 10 mEq 10 meq PO DAILY 5 days #5 ca ps 02/05/25 02/06/25 capsule,extended release acetaminophen 300 mg-codeine 30 mg 1 tab PO DAILY PRN pain 02/06/25 02/06/25 tablet cholecalciferol (vitamin D3) 10 1,000 unit PO DAILY 02/06/25 mcg/0.25 mL oral drops cyanocobalamin (vitamin B-12) 500 500 mcg PO DAILY 01/2102/06/25 mcg tablet (Vitamin B-12) diazepam 5 mg tablet 2.5 mg PO QID PRN muscle spa sm 02/06/25 02/06/25 milk thistle 150 mg capsule 150 mg PO DAILY 02/06/25 1 04/08/24 saliva stimulant comb. no.3 1 applic mucous membrane Q ID PRN 02/06/25 02/06/25 (Biotene Moisturizing Mouth dry mouth mucosal spray) ciprofloxacin HCl 750 mg tablet 750 mg PO BID 3 days # 6 tabs 02/09/25 PHYSICAL EXAM AT DISCHARGE Vital Signs: Vital Signs x48h Pulse Resp BP Pulse Ox 02/09/25 13:00 67 19 114/58 L 97 LABS 02/09/25 05:06 02/08/25 04:05 FOLLOW UP Follow Up: Follow-up with PCP scheduled for 02/20 Consider hematology follow-up if she remains neutropenic. TIME SPENT Time Spent in Discharge (Minutes): 41 Discharge Plan Discharge Patient Disposition: 01 Home, Self Care Condition: Stable Medically Cleared Date:: 02/09/25 Prescriptions: New ciprofloxacin HCl 750 mg tablet 750 mg PO BID 3 Days Qty: 6 0RF Rx Instructions: Start 02/10 AM Continued psyllium husk [Fiber (psyllium husk)] 0.52 GM capsule 5 g PO DAILY amlodipine 5 mg tablet 5 mg PO DAILY Patient Comments: TAKE 1 CAPSULE BY MOUTH ONCE DAILY levothyroxine 50 mcg tablet 50 mcg PO DAILY potassium chloride 10 mEq capsule, extended release 10 meq PO DAILY 5 Days Qty: 5 0RF acetaminophen-codeine 300-30 mg tablet 1 tab PO DAILY PRN (Reason: pain) Patient Comments: take 1 tablet by mouth once daily if needed for pain diazepam 5 mg tablet 2.5 mg PO QID PRN (Reason: muscle spasm) Patient Comments: TAKE ONE-HALF TO ONE FULL TABLET BY MOUTH FOUR TIMES DAILY NEEDED FOR MUSCLE SPASM cholecalciferol (vitamin D3) 10 mcg/0.25 mL drops 1,000 unit PO DAILY cyanocobalamin (vitamin B-12) [Vitamin B-12] 500 mcg tablet 500 mcg PO DAILY milk thistle 150 mg capsule 150 mg PO DAILY Rx Instructions: give with meal/snack Biotene Moisturizing Mouth [place],Non-Aerosol 1 applic mucous membrane QID PRN (Reason: dry mouth) Discontinued cefuroxime axetil 500 mg tablet 500 mg PO BID 7 Days Qty: 14 0RF Activity Restrictions: No Restrictions Activity Restrictions/Additional Instructions: You have been treated for a bloodstream infection (bacteremia) caused by E scherichia coli. This is a common bacteria that colonized in her body, but likely became infectious after and filtrating your bloodstream probably through your urine. You had an attendant urinary tract infection. You have been treated with IV antibiotics for a total of 96 hours. You will continue to take antibiotic for a total of 7 days. This is an additional 3 days of oral antibiotics starting tomorrow 02/10. In order to continue feeling better, I would take the following steps: * Continue your prescribed antibiotics exactly as directed. If you were switched to oral antibiotics, this is supported by current guidelines for stable patients who have improved with initial IV therapy. The total duration of antibiotics is typically 714 days, depending on your clinical response and source of infection. For your infection 7 days is appropriate. * Do not skip doses. Complete the entire course, even if you feel better. * Continue to take probiotics while you are on antibiotics to reduce your risk of infectious diarrhea. * Please return to care if you experience any of the following: * Fever, chills, or sweats * Confusion, weakness, or difficulty breathing * Any other symptoms that concern you * Rapid worsening of your diarrhea or abdominal pain You are technically now mildly neutropenic on our blood tests. Your specific type of white blood cells called neutrophils are low. Given your history I suspect they are chronically low, and were more elevated in the setting of your active infection on arrival. Please make sure to maintain good hand hygiene, be cautious with any sick contacts, and make sure your doctors know you are at risk of bacterial infection. Follow-Up: * Attend all scheduled follow-up appointments. Blood tests may be needed to confirm the infection has cleared, but should largely be based on your symptoms. * You should have your thyroid levels checked in the next 6 to 8 weeks once you are feeling better. * Continue to follow-up with your liver specialist * You should have blood test to check your white blood cell count at follow-up with your primary care doctor. Once you are off antibiotics, if your white blood cell count remains low, you should follow-up with a blood specialist (aws architect). General Care: * Stay hydrated and rest as needed. * Take all medications as prescribed. * Inform your provider of any medication side effects (rash, diarrhea, nausea, etc.). It has been a pleasure taking care of you. I hope you continue to do well. Diet: Regular Assessment: referral. Plan of Treatment: Abx PO orders. Print Language: Ukrainian Patient Instructions: Ciprofloxacin, Neutropenia Risk for Infection Follow-up Care: GIOVANNA MARCELO ARNP [Primary Care Provider, Nurse Practitioner] Vitals documented within 30 minutes of discharge?: Yes (Yes)"
[2025-02-09 14:07] VITALS: BP 114/58; O2SAT 97
== END 2025-02-09 13:30 | disposition home or self-care (01) | DRG 690 ==
LOC: ED 10:44 → SUATTDRO 12:13 → MS3 12:13
PROVIDERS: ADMIT Internal Medicine; ATTEND Student in an Organized Health Care Education/Training Program